=== PATIENT | male | born 1955 | race Caucasian/White ===

== ENCOUNTER → 2017-01-28 | Outpatient (CLI) | payer OTHER ==
[~2017-01-28] MED LIST: ASPI-200 PO; ATEN1TAB74 PO; ATEN50TA PO; LISI-519 PO; NORC5TAB PO; RAMI5CAP7 PO; ROSU20 PO
[2017-01-28 13:02] LABS: AUTOMATED NEUTROPHIL # 5.5 TH/MM3 (1.8-7.7); BASOPHIL % 0.3 % (0.0-2.0); EOSINOPHIL # 0.2 TH/MM3 (0-0.4); EOSINOPHIL % 2.1 % (0.0-4.0); HEMATOCRIT 49.6 % (39.0-51.0); MEAN CORPUSCULAR HEMOGLOBIN 31.8 PG (27.0-34.0); MEAN CORPUSCULAR HGB CONC 34.2 % (32.0-36.0); MEAN PLATELET VOLUME 9.8 FL (7.0-11.0); MONO % 7.4 % (0.0-8.0); MONOCYTE # 0.6 TH/MM3 (0-0.9); NEUT % 66.2 % (16.0-70.0); PLATELET COUNT 204 TH/MM3 (150-450); RED BLOOD COUNT 5.33 MIL/MM3 (4.50-5.90); RED CELL DISTRIBUTION WIDTH 14.5 % (11.6-17.2); WHITE BLOOD COUNT 8.2 TH/MM3 (4.0-11.0)
[2017-01-28 13:25] LABS: ALBUMIN 3.7 GM/DL (3.4-5.0); AST (GOT) 15 U/L (15-37); BICARBONATE 26.6 MEQ/L (21.0-32.0); BLOOD UREA NITROGEN 24 MG/DL (7-18); CALCIUM 9.2 MG/DL (8.5-10.1); CHLORIDE 102 MEQ/L (98-107); CREATININE 0.76 MG/DL (0.60-1.30); GLOMERULAR FILTRATION RATE 104 ML/MIN (>89); GLUCOSE,FASTING 106 MG/DL (74-99); SODIUM (NA) 139 MEQ/L (136-145)
[2017-01-28 13:26] LABS: ALT (GPT) 26 U/L (12-78)
[2017-01-28 13:28] LABS: ALKALINE PHOSPHATASE 42 U/L (45-117); TOTAL BILIRUBIN ADULT 0.6 MG/DL (0.2-1.0); TOTAL PROTEIN 7.2 GM/DL (6.4-8.2)
--- NOTE | 2017-01-28 17:53 | EKG ---
Date Performed: 01/28/2017 Time Performed: 10:52:02 PTAGE: 61 years EKG: Sinus rhythm NORMAL ECG NO PREVIOUS TRACING DOCTOR: Jf Alves Interpretating Date/Time 01/28/2017 17:52:10
--- NOTE | 2017-01-28 17:53 | EKG ---
Date Performed: 01/28/2017 Time Performed: 10:52:02 PTAGE: 61 years EKG: Sinus rhythm NORMAL ECG NO PREVIOUS TRACING DOCTOR: Jf Alves Interpretating Date/Time 01/28/2017 17:52:10
--- NOTE | 2017-01-28 17:53 | EKG ---
Date Performed: 01/28/2017 Time Performed: 10:52:02 PTAGE: 61 years EKG: Sinus rhythm NORMAL ECG NO PREVIOUS TRACING DOCTOR: Jf Alves Interpretating Date/Time 01/28/2017 17:52:10
--- NOTE | 2017-02-01 09:37 | MH ---
cc: JOAQUIN RIDLEY M.D. DATE OF ADMISSION 01/28/2017 DATE OF 1955 ADMISSION DIAGNOSIS 1. Subchondral bone edema / fracture medial femoral condyle and medial tibial plateau left knee. 2. Obesity 3. Osteoarthritis left knee 4. Degenerative/post-traumatic meniscal tears medial meniscus. PAST HISTORY The patient has fought obesity all his life. He has had a lap band procedure done in the past. OTHER SURGERIES As follows: 1. Right total hip 2011 2. Right shoulder replacement many years ago 3. Surgery for strangulated umbilical hernia 4. Tonsillectomy 5. Interventional pain management for chronic back problems. PERSONAL HISTORY He is a nonsmoker. He has a supervisor building maintenance self-employed. MEDICAL PAST HISTORY 1. High blood pressure 2. Hyperlipidemia 3. Coronary artery disease MEDICATIONS 1. Altace 2. Lisinopril PRESENT HISTORY He twisted his knee stepping off a ladder on December 07, 2016 followed by severe pain and inability to walk and limping. The patient was seen in the office and he had x-rays and was given a steroid injection in the knee. The patient came back a week or two later complaining of worsening pain and not getting better at all and inability to do activities of daily living particularly his work and therefore an MRI scan was ordered which showed significant edema medial side of the knee particularly medial femoral condyle and also edema in the anteromedial aspect of the tibial plateau. There is some chondromalacia of the patella and some degenerative meniscus tears. At this point, it was determined that he would be a candidate for this new procedure called subchondroplasty which involves injecting calcium sulfate under fluoroscopic guidance through specialized needles. This procedure shows great promised according to the literature. I discussed this with him particularly telling him that this is a new procedure and this is new to me also, as far as the injection of calcium sulfate is concerned. The rationale and the prognosis and the followup and the potential problems discussed. The patient, when seen today, states about two weeks ago that the pain was mostly gone, but since he has gone back to work after a week's rest, the pain is coming back so he would like to proceed because he is sure that as the time goes and he gets more active on his leg, the pain is going to come back and it appears that it probably will be so. The patient is therefore being brought in for arthroscopic surgery of the knee and percutaneous injection of calcium sulfate as mentioned above. Informed consent has been obtained. No guarantees made. Postoperative course including use of crutches and the fact that he is going to be swollen and sore for about three weeks discussed with that. PHYSICAL EXAM Physical examination reveals a white male who is 5 foot 10 inches tall, 265 pounds. He has a varus deformity of the right knee and middle varus deformity of the left knee. There is some swelling of the left knee, but no warmth or effusion. He is tender over the medial femoral condyle and medial joint line, but not over the medial tibial plateau. He has discomfort in the popliteal space also. He lacks the last couple of degrees of extension, but can flex past 90 degrees. No instability. Left foot has palpable pedal pulses. He moves his toes well. HEAD: Head is normocephalic. EYES, EARS, NOSE AND THROAT: Pupils react to light. Face symmetrical. HEART: Regular rhythm. No murmurs. Lungs Clear to auscultation. ABDOMEN: Nontender. PREOPERATIVE WORK UP Revealed normal essentially borderline change in the blood tests. His EKG is reported as normal. MD AUGUSTUS Monroe/BRITTNEY /9:10 AM 9:19 AM JORDY
== END ==
LOC: CPRE 10:15
PROVIDERS: ATTEND Orthopaedic Surgery
DX: Z01.810 Encounter for preprocedural cardiovascular examination (principal); Z01.812 Encounter for preprocedural laboratory examination
CPT/HCPCS: 36415; 80053; 85025; 93005

== ENCOUNTER → 2017-02-01 | Day surgery (SDC) | payer OTHER ==
[~2017-02-01] VITALS: Ht 177.8 cm; Wt 126.5 kg
[~2017-02-01] MED LIST changes: +*morphine SULFATE 8 MG/ML PERIprocedure ONLY ONE; +ACETAMINOPHEN/HYDROcodone 325 MG/5 MG TAB PO PRN; -ATEN1TAB74 PO; +BUPIVACAINE HCL PF 0.5% 30 ML VIAL ONE; +CHLORHEXIDINE GLUCONATE 2 % 1 PACK (2 CLOTHS) TOPICAL PRN; +DO NOT ADM ANY ANTICOAGULANT DRUGS PRN; +INSULIN HUMAN REGULAR 1,000 UNITS/10 ML VIAL SQ PRN; +LACTATED RINGER'S 1000 ML IV PRN; +LIDOCAINE HCL 1% PF 5 ML AMPULE OTHER ONE; +METOPROLOL TARTRATE 25 MG TAB PO PRN; +MIDAZOLAM HCL 2 MG/2 ML VIAL IV ONE; +MORPHINE SULFATE 4 MG/ML INJ IV PUSH PRN; +ONDANSETRON HCL 4 MG/2 ML VIAL IV ONE; +ONDANSETRON HCL 4 MG/2 ML VIAL IV PUSH PRN; +PHENYLEPH/NS 1000 MCG/10 ML SYR IV ONE; +POVIDONE IODINE 5% (ANTISEPSIS KIT) 4 APPLICATIONS EACH NARE PRN; +POVIDONE IODINE 7.5% SCRUB 118 ML BOTTLE TOPICAL SCH; +PROPOFOL 200 MG/20 ML AMP IV ONE; -RAMI5CAP7 PO; -ROSU20 PO; +SODIUM CHLORID 0.9% 500 ML IV PRN; +SODIUM CHLORIDE 0.9% FLUSH 5 ML FLUSH IVF PRN; +SODIUM CHLORIDE 0.9% FLUSH 5 ML FLUSH IVF SCH; +ceFAZolin 2 GM PREMIX 50 ML IV SCH; +ePHEDrine/NS 25 MG/5 ML SYR IV ONE
--- NOTE | 2017-02-01 13:48 | RADRPT ---
EXAM DATE/TIME: 02/01/2017 12:24 [facility] COMPARISON: No previous studies available for comparison. INDICATIONS : Left knee arthroscopy and sub-chondroplasty. MEDICAL HISTORY : Hypertension. SURGICAL HISTORY : Coronary artery stent. ENCOUNTER: Initial ACUITY: 1 day PAIN SCORE: Non-responsive. LOCATION: Left knee. FINDINGS: 7 magnified C-arm spot views are centered over the knee joint and labeled left. Images show placement of trochars into the medial femoral condyle as well as the medial tibial plateau. Both paralleling t he articular surface subsequent images show methylmethacrylate cement within the trabecular bone at t hese locations. No cement is observed within the joint space. CONCLUSION: Sub-chondroplasty images as detailed above. Eugene Coyne Jr., MD on February 01, 2017 at 13:40 Board Certified Radiologist. This report was verified electronically.
[2017-02-01 15:05] VITALS: BP 120/89; PULSE 67; RESP 18; TEMP 97; O2SAT 97
--- NOTE | 2017-02-01 20:57 | MP ---
cc: JOAQUIN MENDES DATE OF SURGERY: 02/01/2017. PREOPERATIVE DIAGNOSIS: 1. Subchondral bone edema / fracture medial femoral condyle and medial tibial plateau. 2. Osteoarthritis. 3. Obesity. 4. Degenerative tear medial meniscus. POSTOPERATIVE DIAGNOSIS: 1. Subchondral bone edema / fracture medial femoral condyle and medial tibial plateau. 2. Osteoarthritis. 3. Obesity. 4. We did not see any obvious tearing of the medial meniscus. OPERATIVE PROCEDURE PERFORMED: Arthroscopic surgery consisting of: 1. Chondroplasty medial femoral condyle. 2. Partial synovectomy including the excision of a medial plica. Subchondral plasty of the medial femoral condyle and medial tibial plateau. SURGEON: Joaquin Mendes MD. ANESTHESIA: General. DESCRIPTION OF THE PROCEDURE IN DETAIL: After induction of general anesthesia, the patient's right leg was examined. There was no change from the preoperative evaluation. A midthigh tourniquet was applied. The patient's leg was placed in a leg chaney with good padding. The right leg was placed on a folded foam and the genital area well protected. The left lower extremity was thoroughly prepped with alcohol and ChloraPrep and draped in routine fashion. After application of an Esmarch bandage, the tourniquet was inflated to 275 mmHg. The arthroscope was introduced into the knee through the inferolateral portal adjacent to the lower pole of the patella and patellar tendon. Irrigation established superomedially. Accessory medial portal established for instrumentation. Systematic visualization of the joint was carried out. The patient's suprapatellar pouch had a lot of debris that was evacuated. It should be noted that when we put the cannula to put the scope in, about 10 cc of serous fluid came out of the joint. The patellofemoral joint showed osteoarthritis with a bare area of undersurface of the patella with bone exposed over an area of about 10 mm. There was chondromalacia of the rest of the cartilage and so it was over the trochlear notch of the femur. There was significant synovitis anteromedially including a very thick medial patellar plica which was eventually debrided. The medial meniscus was somewhat atrophic with no obvious tearing. The posterior horn seemed stable. The anterior cruciate ligament was normal. The lateral compartment showed much improved appearance of the cartilage and meniscus with no obvious changes. Using a 16 degree ArthroCare wand, chondroplasty of the medial femoral condyle was carried out. As mentioned before, a synovectomy including excision of medial plica was carried out. The arthroscopic instrumentation was withdrawn and fluoroscopic imaging was carried out to locate the site of introduction of the 11 mm needle cannula of the AccuFill System into the center of the bone edema of the medial femoral condyle and the medial tibial plateau. I had AP and lateral fluoroscopic images available to be able to do this. I used a multi-hole cannula in the medial femoral condyle and an end hole needle cannula on the tibia. Once we confirmed position of these needle cannulas fluoroscopically, the calcium sulfate that was mixed on the back table was injected, first into the femur and then into the tibia and 3 cc were injected into the femur and 2 cc into the tibia. Fluoroscopic imaging revealed satisfactory distribution of this with no extravasation into the soft tissues or the joint. With the needles still there, and with the attached syringes, arthroscopic evaluation was resumed. We particularly looked in the medial gutter and adjacent to the medial tibial plateau and there was no evidence of extravasation either here or on the joint surface. Arthroscopic surgery was completed. The portals were closed with nylon sutures. The needle cannulae of the AccuFill System was left in for 12 minutes (recommended time 10 minutes for solidification of the calcium sulfate), and this was then withdrawn and the areas were dressed with Xeroform, 4 x 4's, ABD, Sof-Rol and AUGUSTINE bandage. Final fluoroscopic images revealed good appearance of the calcium sulfate / AccuFill bone graft in the medial femoral condyle and medial tibial plateau. Final fluoroscopic images were saved for record keeping. The patient was transferred to the recovery room in satisfactory condition after release of the tourniquet. Total tourniquet time was 55 minutes. The patient tolerated the procedure well. Complications - none. The postoperative condition was satisfactory. The prognosis is guarded to good. MD AUGUSTUS Monroe/NESHA /1:24 PM /8:24 PM JORDY
== END | disposition home or self-care (01) ==
LOC: HSDC 09:55
PROVIDERS: ATTEND Orthopaedic Surgery
DX: S72.432A Displaced fracture of medial condyle of left femur, initial encounter for closed fracture (principal); S82.142A Displaced bicondylar fracture of left tibia, initial encounter for closed fracture; M94.262 Chondromalacia, left knee; M17.12 Unilateral primary osteoarthritis, left knee; I10 Essential (primary) hypertension; E66.9 Obesity, unspecified; Z95.5 Presence of coronary angioplasty implant and graft
CPT/HCPCS: 01400; 29855; 29875; 73560; 76000; C1713; J0690; J2250; J2270; J2370; J2405; J3010; J7120

== ENCOUNTER 2017-03-03 19:19 | Emergency (ER) | payer OTHER ==
[~2017-03-03] VITALS: Ht 177.8 cm; Wt 124.0 kg
[~2017-03-03 19:19] MED LIST changes: -*morphine SULFATE 8 MG/ML PERIprocedure ONLY ONE; -ACETAMINOPHEN/HYDROcodone 325 MG/5 MG TAB PO PRN; -BUPIVACAINE HCL PF 0.5% 30 ML VIAL ONE; -CHLORHEXIDINE GLUCONATE 2 % 1 PACK (2 CLOTHS) TOPICAL PRN; -DO NOT ADM ANY ANTICOAGULANT DRUGS PRN; -INSULIN HUMAN REGULAR 1,000 UNITS/10 ML VIAL SQ PRN; -LACTATED RINGER'S 1000 ML IV PRN; -LIDOCAINE HCL 1% PF 5 ML AMPULE OTHER ONE; -METOPROLOL TARTRATE 25 MG TAB PO PRN; -MIDAZOLAM HCL 2 MG/2 ML VIAL IV ONE; -MORPHINE SULFATE 4 MG/ML INJ IV PUSH PRN; -ONDANSETRON HCL 4 MG/2 ML VIAL IV ONE; -ONDANSETRON HCL 4 MG/2 ML VIAL IV PUSH PRN; -PHENYLEPH/NS 1000 MCG/10 ML SYR IV ONE; -POVIDONE IODINE 5% (ANTISEPSIS KIT) 4 APPLICATIONS EACH NARE PRN; -POVIDONE IODINE 7.5% SCRUB 118 ML BOTTLE TOPICAL SCH; -PROPOFOL 200 MG/20 ML AMP IV ONE; -SODIUM CHLORID 0.9% 500 ML IV PRN; -SODIUM CHLORIDE 0.9% FLUSH 5 ML FLUSH IVF PRN; -SODIUM CHLORIDE 0.9% FLUSH 5 ML FLUSH IVF SCH; -ceFAZolin 2 GM PREMIX 50 ML IV SCH; -ePHEDrine/NS 25 MG/5 ML SYR IV ONE
[2017-03-03 19:29] VITALS: BP 135/77; PULSE 82; RESP 18; TEMP 98.3
--- NOTE | 2017-03-03 20:29 | PD ---
HPI Chief Complaint: Skin Problem Time Seen by Provider: 20:10 Travel History International Travel<30 days: No Contact w/Intl Traveler<30days: No Traveled to known affect area: No History of Present Illness HPI 61-year-old male with history of MRSA presents to the emergency room for evaluation of left hand infection. First noticed it 4 days ago days ago. States it started as a superficial blister 1 week ago that he got from a jackhammer. He pulled off the skin and the following day, he had increasing redness, pain, and swelling. Denies fever, chills, nausea, and vomiting. Only reports history of HTN. Tetanus is up-to-date. PFSH Past Medical History Arthritis: Yes Autoimmune Disease: No Blood Disorders: No Heart Rhythm Problems: No Cancer: No Cardiovascular Problems: Yes (STENT X1) High Cholesterol: Yes Chemotherapy: No Chest Pain: No Congestive Heart Failure: No Cerebrovascular Accident: No Diabetes: No Diminished Hearing: No Endocrine: No Glaucoma: No Genitourinary: No Headaches: No Hepatitis: No Hiatal Hernia: No Hypertension: Yes Immune Disorder: No Musculoskeletal: Yes (OA) Neurologic: No Psychiatric: No Reproductive: No Respiratory: No Myocardial Infarction: No Radiation Therapy: No Seizures: No Thyroid Disease: No ?: Not Past Surgical History AICD: No Body Medical Devices: LAP BAND Cardiac Surgery: No Coronary Stent: Yes Ear Surgery: No Endocrine Surgery: No Eye Surgery: No Genitourinary Surgery: No Gynecologic Surgery: No Joint Replacement: Yes (L HIP, L SHOULDER) Oral Surgery: No Pacemaker: No Thoracic Surgery: No Other Surgery: Yes Social History Alcohol Use: No Tobacco Use: No Substance Use: No Allergies-Medications (Allergen,Severity, Reaction): Coded Allergies: No Known Allergies (Verified Allergy, Unknown, 03/03/17) Reported Meds & Prescriptions Reported Meds & Active Scripts Active Clindamycin (Clindamycin HCl) 300 Mg Cap 300 Mg PO Q6H 10 Days Bactrim DS (Sulfamethoxazole-Trimethoprim) 800-160 Mg Tab 1 Tab PO BID Reported Atenolol 50 Mg Tab 50 Mg PO DAILY Lisinopril 5 Mg Tab 5 Mg PO DAILY Review of Systems Except as stated in HPI: all other systems reviewed are Neg Physical Exam Narrative GENERAL: Well-nourished, well-developed male in no acute distress. Afebrile. Ambulatory. SKIN: Focused skin assessment warm/dry.SKIN: There is an indurated area in the left thenar eminence which measures about 2 cm in diameter. It is fluctuant but there is no pointing or drainage. There is a zone of inflammation around it with lymphangitis extending to the wrist HEAD: Normocephalic. EYES: No scleral icterus. No injection or drainage. NECK: Supple, trachea midline. No JVD or lymphadenopathy. CARDIOVASCULAR: Regular rate and rhythm without murmurs, gallops, or rubs. RESPIRATORY: Breath sounds equal bilaterally. No accessory muscle use. MUSCULOSKELETAL: No cyanosis. Mild to moderate edema of the left hand. Full range of motion. Less than 2 second capillary refill distally. Data Data Last Documented VS Vital Signs Date Time Temp Pulse Resp B/P (MAP) Pulse Ox O2 Delivery O2 Flow Rate FiO2 03/03/17 19:29 98.3 82 18 135/77 (96) Orders Orders Lidocai-Epi 1%-1:100,000 Inj (Xylocaine- (03/03/17 20:30) Clindamycin Inj (Cleocin Inj) (03/03/17 20:30) Ed Discharge Order (03/03/17 20:47) [facility] Medical Decision Making Medical Screen Exam Complete: Yes Emergency Medical Condition: Yes Medical Record Reviewed: Yes Differential Diagnosis Abscess, cellulitis, folliculitis Narrative Course 61-year-old male with history of MRSA presents to the emergency room for evaluation of an abscess to his left hand. Started off as a superficial blister caused by a jackhammer that he picked. Denies systemic signs of infection. Vital signs stable. Patient has full range of motion of the left hand. There is moderate edema of the left hand but full range of motion. There is an abscess over the thenar eminence that is extremely tender to palpation. Lymphangitis extending to the left wrist. Patient given 900 mg IM clindamycin the emergency room. Abscess was drained, see procedure for details. Patient discharged with prescription for clindamycin and Bactrim and told to follow-up with a PCP or return for worsening symptoms. He understands and agrees to plan. Procedures Procedure Narrative INCISION AND DRAINAGE OF ABSCESS: The area was prepped and was sterilely draped. A subcutaneous wheal of 1% lidocaine with epinephrine with a total number 3 mL was used to anesthetize the area properly. A number 11 scalpel was used to make a 1 cm incision across the area of the abscess. The abscess was drained, complex loculations were broken down, and irrigated with normal saline. Sterile dressing applied. Diagnosis Primary Impression: Abscess of left hand Referrals: Primary Care Physician Additional Instructions: Rest and drink plenty of fluids. Take Bactrim as directed, until gone. Take clindamycin as directed, until gone. Follow up with a primary care physician. Return to emergency room for worsening symptoms, as discussed. Med/Other Pt SpecificInfo: Prescription(s) given Scripts Clindamycin (Clindamycin) 300 Mg Cap 300 MG PO Q6H for Infection for 10 Days, #40 CAP 0 Refills Prov: Raymundo Odonnell MD 03/03/17 Sulfamethoxazole-Trimethoprim (Bactrim DS) 800-160 Mg Tab 1 TAB PO BID for Infection, #20 TAB 0 Refills Prov: Raymundo Odonnell MD 03/03/17 Disposition: 01 DISCHARGE HOME Condition: Stable Bindu Gibson Mar 03, 2017 20:29
[2017-03-03] MEDS ORDERED: LIDOCAINE 1%/EPINEPHrine 1:100,000 SOLN 20 ML VIAL INFIL ONE (20:30)
[2017-03-03] MEDS ORDERED: CLINDAMYCIN PHOS 900 MG/6 ML VIAL IM ONE (20:30)
[2017-03-03] MEDS ORDERED: CLIN300C5 PO (20:46)
[2017-03-03] MEDS ORDERED: BACT800T5 PO (20:46)
== END 2017-03-03 21:06 | disposition home or self-care (01) ==
LOC: PHEFT 19:19
DX: L02.512 Cutaneous abscess of left hand (principal); Z86.14 Personal history of Methicillin resistant Staphylococcus aureus infection
CPT/HCPCS: 10060; 96372

== ENCOUNTER 2017-10-01 06:42 | Day surgery (SDC) | payer OTHER ==
[~2017-10-01] VITALS: Ht 177.8 cm; Wt 124.2 kg
[~2017-10-01 06:42] MED LIST changes: -ASPI-200 PO; +BACT800T5 PO; +CLIN300C5 PO; -NORC5TAB PO
[2017-10-01] MEDS ORDERED: IOHEXOL 350 MG/ML 100 ML BTL (for Cath Lab) OTHER ONE (06:43)
[2017-10-01 07:20] VITALS: BP 124/80; PULSE 62; RESP 18; TEMP 98.7; O2SAT 96
[2017-10-01] MEDS ORDERED: ASPI-183 PO (07:29)
[2017-10-01] MEDS ORDERED: ATOR40TA16 PO (07:29)
[2017-10-01] MEDS ORDERED: NS 1000P @30 MLS/HR (KVO) IV SCH (07:30)
[2017-10-01] MEDS ORDERED: PRAV20TA2 PO (07:33)
[2017-10-01] MEDS ORDERED: HEPARIN-NS/PF INJ 1,500 ML ONE (07:49)
[2017-10-01] MEDS ORDERED: HEPARIN SODIUM - IV 10,000 UNITS/10 ML VIAL ONE (07:49)
[2017-10-01] MEDS ORDERED: NITROGLYCERIN INJ 5 ML ONE (07:50)
[2017-10-01] MEDS ORDERED: MIDAZOLAM HCL 2 MG/2 ML VIAL ONE (08:19)
[2017-10-01] MEDS ORDERED: LIDOCAINE HCL 1% PF 30 ML VIAL ONE (08:22)
[2017-10-01] MEDS ORDERED: ATROPINE SULFATE 1 MG/ML VIAL IV PUSH PRN (09:15)
[2017-10-01] MEDS ORDERED: LORazepam 2 MG/ML VIAL IV PUSH PRN (09:15)
[2017-10-01] MEDS ORDERED: SODIUM CHLOR 0.9% 250 ML INJ 250 ML IV PRN (09:15)
[2017-10-01] MEDS ORDERED: MISC INFORMATION XX ONE ×2 (09:15)
[2017-10-01] MEDS ORDERED: LIDOCAINE HCL 1% 50 ML VIAL INFIL PRN (09:15)
[2017-10-01] MEDS ORDERED: BACITRACIN OINT 0.9 GM PKT TOP ONE ×2 (09:15)
--- NOTE | 2017-10-01 09:18 | CATHPROC ---
Esan[employer] HIS Report Study Information Study Number Admission Scheduled Start Study Start [id number] Oct 01 2017 6:42AM 10/01/2017 Oct 01 2017 8:13AM [place] [facility] Cardiac Catheterization Admit Source Facility Department Other [facility] Physician and Clinical Staff Initial [facility] Garrett RN, Benito RecordMonet Corcoran,FRANCIS TECH2 Scrub Stone, Lyssa,RT(R) Procedures Performed Procedure Location (Site) Vessel Name Angiogram LV LV Ventricle Coronary Angiograms LCA Left Coronary Coronary Angiograms RCA Right Coronary Wire insertion Radial (right) Radial Art. Equipment Time Electric Spot Welder Description Size Mfg Part Number Used/Scraped TRANSDUCER, TRUWAVE [id number] 08:15 WOODY GUERRERO * Used W/STOCKCOCK *[id number] 09:05 [employer] VASCADE, FR5 CLOSURE SYSTEM FR 5 Used *[id number] [id number] *[id number] [id number] *[id number] [id number] *[id number] WIRE, AMPLATZ SUPER STIFF 08:43 Esanex 180CM [id number] Used 3MMJ [id number] 08:15 TRiQ BLANKET,WARM AIR CCL * Used *[id number] 08:15 TRiQ PACK, CCL CUSTOM * Used *[id number] 08:15 TRiQ SUPPORT, ARTERIAL ADULT 11772 *[id number] Used [id number] 08:15 Dine perfect PACER PEN, SKIN DUAL W/ RULER * Used *[id number] 08:52 [employer] JL 4.0 DXTERITY CATHETER FR 5 Used *[id number] BAND, RADIAL COMPRESSION TR [id number] 09:04 [employer] 24CM Used SHORT 24 *[id number] SHEATH, FR6 RADIAL PRELUDE 08:15 [employer] FR 6 [id number] Used EASE 11CM [id number] 08:15 [employer] WIRE, EXCHANGE 260CM 3MMJ 260CM Used *[id number] 08:15 NAMIC MANIFOLD, 4 PORT * Used *[id number] TUBING, PRESSURE INJECTION [id number] 09:04 NAMIC 72" Used 72" *[id number] 08:15 [employer] OMNIPAQUE, 350 MG, 150ML 150ML [id number] Used 09:02 [employer] OMNIPAQUE, 350 MG, 50ML 50ML [id number] Used [id number] 08:49 TERUMO MEDICAL SHEATH, FR5 TERUMO (10CM) FR 5 Used *[id number] Equipment Model, Serial, Lot Number and Expiration Data Description Model Number Serial Number Lot Number Expiration Date JL 4.0 DXTERITY CATHETER [id number] 01-23-2020 WIRE, AMPLATZ SUPER STIFF 3MMJ [id number] 07-01-2020 History: Current Medications Medication Dosage/Unit Route Frequency Last Date/Time Taken ASA Beta Abdulaziz LISINOPRIL HCTZ History: Allergies Allergy Reaction No Known Allergies History: Risk Factors Family History of Hypertension Dyslipidemia Previous NH Previous Heart Failure Premature CAD Yes Yes No No No Prior Valve Prior PCI Prior PCIDate Prior CABG Surgery No Yes 12/14/2004 No Cerebrovascular Peripheral Artery Chronic Lung On Dialysis Diabetes Disease Disease Disease No No No No No History: Symptoms/Diagnosis Selection Items Chest pain History: Stress Tests Stress or Imaging Studies Performed Yes Standard Exercise Stress Test No Stress Echo No Stress Test SPECT Stress Test SPECT Result Stress Test SPECT Ischemia Risk/Extent Yes Positive Intermediate Stress Test CMR No Cardiac CTA Coronary Calcium Score No No History: Other Current Smoker No Labs Hgb (g/dl) Hct (%) Platelets (thousands) 11.60-17.00 35.00-51.00 150.00-450.00 16.4 50.8 227 Glucose (mg/dl) BUN (mg/dl) Creatinine (mg/dl) BUN:Creatinine (1:x) 74.00-106.00 7.00-18.00 0.50-1.30 10.00-20.00 107 20 0.8 25 Na (meq/l) K (meq/l) 136.00-145.00 3.50-5.10 141 4.6 INR (PTT:PT) 0.90-1.10 1 CPK-MB (ng/ML) 0.50-3.60 Not Drawn Medication Medication Total Dose (Bolus/Oral) Medication Total Dosage/Unit 1% XYLOCAINE 25 mL FENTANYL 75 mcg HEPARIN 5000 units NTG (IC) 200 mcg VERSED 2 mg Medications (Bolus/Oral) Medication Time Given Dosage/Unit Administered By Reason VERSED 10/01/2017 8:34:30 AM 1 mg Benito Tucker RN 1 mg VERSED given in lab by Benito Tucker RN in Left Antecubital via Peripheral IV. Ordered by Michel Ott. FENTANYL 10/01/2017 8:35:43 AM 50 mcg Benito Tucker RN 50 mcg FENTANYL given in lab by Benito Tucker RN in Left Antecubital via Peripheral IV. Ordered by Michel Rahman. 1% XYLOCAINE 10/01/2017 8:37:14 AM 5 mL Michel Ott 5 mL 1% XYLOCAINE given in lab by Michel Ott in Right Radial via Subcutaneous. Ordered by Michel Ott. NTG (IC) 10/01/2017 8:38:46 AM 200 mcg Michel Ott 200 mcg NTG (IC) given in lab by Michel Ott in Right Radial via Intra-arterial. Ordered by Michel Ott. HEPARIN 10/01/2017 8:39:40 AM 5000 units Benito Tucker RN 5000 units HEPARIN given in lab by Benito Tucker RN in Left Antecubital via Peripheral IV. Ordered by Michel Ott. 1% XYLOCAINE 10/01/2017 8:47:21 AM 20 mL Michel Ott 20 mL 1% XYLOCAINE given in lab by Michel Ott in Right Groin via Subcutaneous. Ordered by Michel Ott. VERSED 10/01/2017 8:47:53 AM 1 mg Benito Tucker RN 1 mg VERSED given in lab by Benito Tucker RN in Left Antecubital via Peripheral IV. Ordered by Michel Ott. FENTANYL 10/01/2017 8:48:57 AM 25 mcg Benito Tucker RN 25 mcg FENTANYL given in lab by Benito Tucker RN in Left Antecubital via Peripheral IV. Ordered by Michel Rahman. Medication (Drip) Medication Time Given Dosage/Unit Concentration/Unit Diluent (ml) Solution IV Solutions 10/01/2017 8:13:24 AM 0 mL (IV) 500 NaCl .9 IV Solutions given in lab by Benito Tucker RN in Left Antecubital via Peripheral IV. Pump/Drip Flow = 30 ml/hr using NaCl .9. Initial Case Assessment Cardiovascular HR Rhythm NIBP Chest Pain 57 reg 132/84 0 Edema Present Skin color Skin None Normal Warm Dry Circulatory - Right Pulses Dorsalis Pedis Femoral Radial 2 3 2 Scale (0,1,2,3,4,d) Circulatory - Left Pulses Dorsalis Pedis Femoral Radial 2 3 Scale (0,1,2,3,4,d) Circulatory - Lower Extremities Color Lower Right Color Lower Left Normal Normal Neurological State Oriented to time-place- Alert Moves all extremities person Respiration - General Respiration Rate SpO2 (%) (B/min) 10 97 Final Case Assessment Cardiovascular HR Rhythm NIBP Chest Pain 59 sr 131/90 0 Circulatory - Right Pulses Dorsalis Pedis Femoral Radial 2 3 2 Scale (0,1,2,3,4,d) Circulatory - Left Pulses Dorsalis Pedis Femoral Radial 2 3 Scale (0,1,2,3,4,d) Neurological State Oriented to time-place- Alert Moves all extremities person Respiration - General Respiration Rate SpO2 (%) (B/min) 20 97 Chronological Log Time Study Chronological Log 8:13:03 Patient arrived via Bed. 8:13:04 Patient Name, D.O.B, / Armband Verified By R.N. 8:13:04 Consent signed by the physician and the patient and verified by the [facility] staff. 8:13:05 Pre-op and post- op instructions given; patient acknowledges understanding of instructions. 8:13:06 Verbal Stimulation=2 Physical Stimulation=2 Airway=2 Respiration=2 TOTAL=8. (0=absent, 1=li mited, 2=present) 8:13:07 Presedation assessment performed by [facility] RN. 8:13:12 Allens test performed on the right radial and ulnar artery. 8:13:17 Patient has been NPO for More than 6Hrs. 8:13:18 Skin Breakdown none per pt 8:13:19 Patient Warmer Placed on the Table. 8:13:22 Piedad Prominences Protected 8:13:23 A # 20 IV was noted in the Antecubital (left). Grade = 0 IV Solutions given in lab by Benito Tucker RN in Left Antecubital via Peripheral IV. Pump/Drip F low = 30 ml/hr using NaCl 8:13:24 .9. 8:13:25 History and physical on the chart or being dictated. Assessment: Initial Case, HR=57 BPM, Rhythm=reg, FEVJ=875/84 mmhg, Chest Pain=0, Edema=None, Co deion=Normal, Skin = Warm, Dry Right Pulses: Koffi Ped=2, Femoral=3, Radial=2 Left Pulses: Koffi Ped=2, Femoral=3 8:13:26 Lower Right Extremities: Color=Normal Lower Left Extremities: Color=Normal Neurological: State=Alert, Ox3, GIL Respiration: Resp=10 B/min, SpO2=97 % Vitals capture started with the following parameters, Patient=Adult, Interval=5 min, Initial Pre xyrad=485 mmHg, 8:14:43 Deflation Rate=5 mmHg, Cuff placed on Left Arm 8:15:51 PUKH=226/84 mmhg, SpO2=97.0 %, Pain=0, Salvador=10, Biswas=2 8:18:25 Reference ECG taken 8:20:21 HR=56 bpm, JRDW=817/81 mmhg, SpO2=96.0 %, Resp=11 B/min, Pain=0, Salvador=10, Biswas=2 8:22:14 Right groin and right radial prepped with 2% chlorhexidine, and draped after a 3 min. waitin g time. 8:25:20 HR=56 bpm, WWYG=187/80 mmhg, SpO2=95 %, Resp=18 B/min 8:28:19 Pressure channel 1 zeroed. 8:30:23 HR=57 bpm, UZJN=096/81 mmhg, SpO2=96.0 %, Resp=12 B/min 8:33:19 MD arrived. 8:34:30 1 mg VERSED given in lab by Benito Tucker RN in Left Antecubital via Peripheral IV. Ordered Michel Whitley. 8:35:22 HR=54 bpm, MLHB=722/81 mmhg, SpO2=96.0 %, Resp=11 B/min 8:35:43 50 mcg FENTANYL given in lab by Benito Tucker RN in Left Antecubital via Peripheral IV. Order ed by Michel Ott. Time Out. Correct patient, correct procedure, correct physician, labs, allergies, and equipment verified with laborer tanbark 8:36:05 team present. Fire risk assesment completed (see hard stop sheet for coding). Time Out Concu rred by and individual staff in procedure. 8:37:13 Case Start 8:37:14 5 mL 1% XYLOCAINE given in lab by Michel Ott in Right Radial via Subcutaneous. Ordered Michel Whitley. 8:38:15 Access site was Radial Artery. A SHEATH, FR6 RADIAL PRELUDE EASE 11CM FR 6 was advanced into the Radial (right) using the Aide hernandez 8:38:31 technique. 8:38:46 200 mcg NTG (IC) given in lab by Michel Ott in Right Radial via Intra-arterial. Ordered by Michel Ott. A JR 5.0 INFINITI CATHETER FR 5 was advanced over a wire. OMNIPAQUE, 350 MG, 150ML 150ML was use d for 8:39:28 injections. 8:39:40 5000 units HEPARIN given in lab by Benito Tucker RN in Left Antecubital via Peripheral IV. Or dered by Michel Ott. 8:40:23 HR=60 bpm, JNON=995/74 mmhg, SpO2=94 %, Resp=11 B/min Recorded Pressure: Ao, HR=54, Condition=Condition 1 8:41:38 (Aorta) Ao 91/60/74 8:42:53 A WIRE, AMPLATZ SUPER STIFF 3MMJ 180CM was inserted via Radial (right). 8:44:14 Wire and catheter removed, unable to advance catheter. 8:44:57 Aborting radial aproach. 8:45:20 HR=55 bpm, UJTA=634/68 mmhg, Resp=16 B/min 8:47:21 20 mL 1% XYLOCAINE given in lab by Michel Ott in Right Groin via Subcutaneous. Ordered Michel Whitley. 8:47:53 1 mg VERSED given in lab by Benito Tucker RN in Left Antecubital via Peripheral IV. Ordered Michel Whitley. 8:48:29 Access site was Right Femoral Artery. 8:48:34 A SHEATH, FR5 TERUMO (10CM) FR 5 was advanced into the Fem Art (right) using the Percutaneou s technique. 8:48:57 25 mcg FENTANYL given in lab by Benito Tucker RN in Left Antecubital via Peripheral IV. Order ed by Michel Ott. A JR 5.0 INFINITI CATHETER FR 5 was advanced over a wire. OMNIPAQUE, 350 MG, 150ML 150ML was use d for 8:49:58 injections. 8:50:10 The RCA was injected and visualized at various angles. OMNIPAQUE, 350 MG, 150ML 150ML used. 8:50:19 HR=56 bpm, YMYF=724/74 mmhg, SpO2=90 %, Resp=12 B/min After removing the current catheter a JL 4.0 DXTERITY CATHETER FR 5 was advanced over a WIRE, EX CHANGE 260CM 8:51:55 3MMJ 260CM. Unable to cannulate LCA, After removing the current catheter a JL 5.0 INFINITI CATHETER FR 5 was advanced over a 8:53:17 WIRE, EXCHANGE 260CM 3MMJ 260CM. Unable to cannulate LCA 8:55:23 HR=58 bpm, TYZR=665/75 mmhg, SpO2=95 %, Resp=10 B/min 8:55:54 The LCA was injected and visualized at various angles. OMNIPAQUE, 350 MG, 150ML 150ML use d. After removing the current catheter a PIGTAIL ANG. INFINITI CATHETER FR 5 was advanced over a WIRE, EXCHANGE 8:59:15 260CM 3MMJ 260CM. 9:00:24 HR=91 bpm, ANIP=546/69 mmhg, SpO2=95.0 %, Resp=15 B/min Recorded Pressure: LV, HR=58, Condition=Condition 1 9:01:12 (Left Ventricle) LV 112/5/12 9:02:08 The LV was injected at 10 cc/sec for a total of 30. OMNIPAQUE, 350 MG, 50ML 50ML used. Recorded Pressure: LV, Ao, HR=57, Condition=Condition 1 9:02:43 (Left Ventricle) LV 101/9/11, (Aorta) Ao 99/58/76 9:03:08 Catheter was removed 9:03:37 Case End (Physician broke scrub) 9:05:23 HR=61 bpm, AJHF=341/78 mmhg, SpO2=97 %, Resp=18 B/min Radial Compression Device Used. 10 mLs of air placed in BAND, RADIAL COMPRESSION TR SHORT 24 2 4CM. Affected 9:06:49 hand ~O2 SATURATION~ % O2 saturation. 9:10:11 VASCADE, FR5 CLOSURE SYSTEM FR 5 placement in the Fem Art (right) manual pressure held for 5 min. 9:10:22 HR=60 bpm, SNMH=440/90 mmhg, SpO2=98.0 %, Resp=18 B/min Assessment: Final Case, HR=59 BPM, Rhythm=sr, ZVNR=152/90 mmhg, Chest Pain=0 Right Pulses: Koffi Ped=2, Femoral=3, Radial=2 9:11:32 Left Pulses: Koffi Ped=2, Femoral=3 Neurological: State=Alert, Ox3, GIL Respiration: Resp=20 B/min, SpO2=97 % 9:13:53 Cine recording checked. 9:15:10 Sterile dressing applied to site 9:15:25 HR=61 bpm, YARQ=514/86 mmhg, SpO2=95.0 %, Resp=18 B/min 9:15:52 No case complications noted. 9:16:54 Bedside Report will be given. End Study - Contrast Media Used In Study Contrast Total Opened (mL) Total Used (mL) Total Wasted (mL) Omnipaque 70 70 0 End Study - Maximum Contrast Load Max Contrast Load (mL) 776.1 End Study - Radiation Exposure Fluoro Time (minutes) 3.1 End Study - Sheaths Sheaths Pulled By Sheath Hold Time (min) Lyssa Hooks End Study - Patient Disposition Complications Transferred To Interventional Outcome No Outpatient Bed No attempt made
--- NOTE | 2017-10-01 09:42 | MA ---
cc: Michel Ott MD DATE: 10/01/2017 INDICATION: Unstable angina, intermediate risk abnormal stress test. PROCEDURES PERFORMED: 1. Fluoroscopy with interpretation. 2. Coronary angiography. 3. Left heart catheterization 4. Left ventriculography. METHOD: Risks, benefits and alternatives were discussed with the patient. The patient understood and consented to the procedure. The patient was brought into the catheterization lab, placed on the catheterization table. The right wrist and right groin were prepped and draped in the usual sterile fashion. The right wrist was anesthetized with 2% lidocaine. The right radial artery was cannulated. A 6-Andorran, 7 cm sheath was placed without difficulty. We did have difficulty navigating the tortuous subclavian and brachiocephalic arteries. We were able to get to the ascending aorta, but due to the tortuosity made coronary engagement very difficult. Radial approach was aborted. A 5-Andorran, 11 cm sheath was placed in the right common femoral artery. LEFT HEART CATHETERIZATION: Intraventricular hemodynamics measured at 101/9 mmHg. Left ventricular end-diastolic pressure 11 mmHg. LEFT VENTRICULOGRAPHY: Left ventriculography was performed in right anterior oblique view using a 5-Andorran angled pigtail catheter and a 30 mL contrast injection with good opacification. Left ventricular ejection fraction visually estimated at 60% without regional wall motion abnormalities. CORONARY ANGIOGRAPHY; 1. Left main coronary has 30% ostial stenosis. There was no dampening upon engagement. 2. Left anterior descending coronary has a stent present in the proximal to mid-segment. There is a first diagonal branch, which has a 90% stenosis. The stent is patent with mild in-stent restenosis. In the mid to distal segment there are several tandem stenoses of about 80%. 3. Left circumflex gives rise to two obtuse marginal branches. The first obtuse marginal branch has a 60% stenosis. The second obtuse marginal branch has an 80% stenosis. 4. Right coronary artery is technically a dominant vessel, although the posterior descending and posterolateral branch is not of very large caliber size. The proximal mid-segment of the right coronary has rather diffuse moderate luminal irregularities. There is a 75% tubular stenosis in the distal right coronary artery and then at the level of the bifurcation with the posterior descending and posterolateral branches there appears to be a 70% stenosis present. CONCLUSIONS: 1. Multivessel coronary artery disease. 2. Normal left ventricular systolic function. PLAN: Given the severity and extent of disease, we will consult Cardiothoracic Surgery for consideration of coronary artery bypass surgery. His diagonal branch and 2 obtuse marginal branches are approachable. The left anterior descending coronary, although graftable, does have poor distal runoff which may be an issue. We will have to discuss with Cardiothoracic Surgery. The right coronary we will have to see if it is large enough to actually bypass distally Percutaneous coronary intervention would require multiple, multiple stents and therefore we should pursue surgical intervention first. Right common femoral artery was closed with good hemostasis using a 5-Andorran VASCADE device. HemoBand applied to the right wrist. MD CIERRA Tenorio/SB , 09:16 AM , 09:41 AM
--- NOTE | 2017-10-01 13:02 | RADRPT ---
EXAM DATE: 10/01/2017 12:38 PM EDT AGE/SEX: 61 years / Male INDICATIONS: Pre op. Evaluate for pneumonia, pneumothorax, or communicable diseases. CLINICAL DATA: This is the patient's initial encounter. Patient reports that signs and symptoms have been present for 1 day and indicates a pain score of 0/10. MEDICAL/SURGICAL HISTORY: Hypertension. None. COMPARISON: No prior exams available for comparison. FINDINGS: A single AP view of the chest demonstrates the lungs to be symmetrically aerated without evidence of mass, infiltrate or effusion. Mild basilar atelectasis. The cardiomediastinal contours are unremarkab le. Osseous structures are intact. CONCLUSION: No active disease. Minimal basilar atelectasis. Previous right shoulder joint replacement. Electronically signed by: Ron Hickey MD 10/01/2017 1:01 PM EDT
[2017-10-01 13:08] LABS: AUTOMATED NEUTROPHIL # 4.9 TH/MM3 (1.8-7.7); BASOPHIL % 0.6 % (0.0-2.0); EOSINOPHIL # 0.4 TH/MM3 (0-0.4); EOSINOPHIL % 5.9 % (0.0-4.0); HEMATOCRIT 48.5 % (39.0-51.0); HEMOGLOBIN 16.2 GM/DL (13.0-17.0); LYMPH % 21.3 % (9.0-44.0); LYMPHOCYTE # 1.6 TH/MM3 (1.0-4.8); MEAN CELL VOLUME 92.6 FL (80.0-100.0); MEAN CORPUSCULAR HGB CONC 33.5 % (32.0-36.0); MONO % 4.5 % (0.0-8.0); MONOCYTE # 0.3 TH/MM3 (0-0.9); NEUT % 67.7 % (16.0-70.0); PLATELET COUNT 207 TH/MM3 (150-450); RED BLOOD COUNT 5.24 MIL/MM3 (4.50-5.90); RED CELL DISTRIBUTION WIDTH 14.8 % (11.6-17.2); WHITE BLOOD COUNT 7.3 TH/MM3 (4.0-11.0)
[2017-10-01 13:19] LABS: PROTHROMBIN TIME - PATIENT 10.4 SEC (9.8-11.6)
[2017-10-01 13:31] LABS: ALKALINE PHOSPHATASE 44 U/L (45-117); ALT (GPT) 23 U/L (12-78); TOTAL BILIRUBIN ADULT 0.6 MG/DL (0.2-1.0); TOTAL PROTEIN 6.9 GM/DL (6.4-8.2)
[2017-10-01 13:34] LABS: ALBUMIN 3.6 GM/DL (3.4-5.0); AST (GOT) 18 U/L (15-37); BLOOD UREA NITROGEN 17 MG/DL (7-18); CALCIUM 9.1 MG/DL (8.5-10.1); CHLORIDE 104 MEQ/L (98-107); CREATININE 0.75 MG/DL (0.60-1.30); GLOMERULAR FILTRATION RATE 106 ML/MIN (>89); GLUCOSE,RANDOM 153 MG/DL (74-106); SODIUM (NA) 140 MEQ/L (136-145)
[2017-10-01 14:13] LABS: HEMOGLOBIN A1C 5.9 % (4.3-6.0)
--- NOTE | 2017-10-01 15:51 | PD.CAR.PN ---
CVT Progress Note Subjective/Hospital Course: pt seen and evaluated / full consult to follow sts score discussed with pt RISK SCORES About the STS Risk Calculator Procedure: CAB Only Risk of Mortality: 0.524% Morbidity or Mortality: 7.302% Long Length of Stay: 2.355% Short Length of Stay: 63.558% Permanent Stroke: 0.45% Prolonged Ventilation: 5.133% DSW Infection: 0.384% Renal Failure: 1.048% Reoperation: 2.891% Objective: Vital Signs Date Time Temp Pulse Resp B/P (MAP) Pulse Ox O2 Delivery O2 Flow Rate FiO2 10/01/17 09:28 96 Room Air 10/01/17 07:20 98.7 62 18 124/80 (95) 96 Labs: Laboratory Tests Test 10/01/17 12:05 White Blood Count 7.3 TH/MM3 (4.0-11.0) Red Blood Count 5.24 MIL/MM3 (4.50-5.90) Hemoglobin 16.2 GM/DL (13.0-17.0) Hematocrit 48.5 % (39.0-51.0) Mean Corpuscular Volume 92.6 FL (80.0-100.0) Mean Corpuscular Hemoglobin 31.0 PG (27.0-34.0) Mean Corpuscular Hemoglobin Concent 33.5 % (32.0-36.0) Red Cell Distribution Width 14.8 % (11.6-17.2) Platelet Count 207 TH/MM3 (150-450) Mean Platelet Volume 10.0 FL (7.0-11.0) Neutrophils (%) (Auto) 67.7 % (16.0-70.0) Lymphocytes (%) (Auto) 21.3 % (9.0-44.0) Monocytes (%) (Auto) 4.5 % (0.0-8.0) Eosinophils (%) (Auto) 5.9 % (0.0-4.0) Basophils (%) (Auto) 0.6 % (0.0-2.0) Neutrophils # (Auto) 4.9 TH/MM3 (1.8-7.7) Lymphocytes # (Auto) 1.6 TH/MM3 (1.0-4.8) Monocytes # (Auto) 0.3 TH/MM3 (0-0.9) Eosinophils # (Auto) 0.4 TH/MM3 (0-0.4) Basophils # (Auto) 0.0 TH/MM3 (0-0.2) CBC Comment DIFF FINAL Differential Comment Prothrombin Time 10.4 SEC (9.8-11.6) Prothromb Time International Ratio 1.0 RATIO Nasal Screen MRSA (PCR) MRSA NOT DETECTED (NOT Blood Urea Nitrogen 17 MG/DL (7-18) Creatinine 0.75 MG/DL (0.60-1.30) Random Glucose 153 MG/DL (74-106) Total Protein 6.9 GM/DL (6.4-8.2) Albumin 3.6 GM/DL (3.4-5.0) Calcium Level 9.1 MG/DL (8.5-10.1) Alkaline Phosphatase 44 U/L (45-117) Aspartate Amino Transf (AST/SGOT) 18 U/L (15-37) Alanine Aminotransferase (ALT/SGPT) 23 U/L (12-78) Total Bilirubin 0.6 MG/DL (0.2-1.0) Sodium Level 140 MEQ/L (136-145) Potassium Level 4.0 MEQ/L (3.5-5.1) Chloride Level 104 MEQ/L (98-107) Carbon Dioxide Level 27.0 MEQ/L (21.0-32.0) Anion Gap 9 MEQ/L (5-15) Estimat Glomerular Filtration Rate 106 ML/MIN (>89) Hemoglobin A1c 5.9 % (4.3-6.0) Result Diagram: 10/01/17 1205 10/01/17 1205 Alina Roman Oct 01, 2017 15:51
--- NOTE | 2017-10-01 16:10 | MB ---
cc: Alina Roman Jacqueline R ARNP DATE: 10/01/2017 DATE OF : 1955 HISTORY OF PRESENT ILLNESS: A 61-year-old male with history of coronary artery disease, prior stent, who has been having chest pain over the past few weeks, was seen by Dr. Mckeon in the office. He took apparently some old nitro and aspirin and got some relief. The pain has been mainly with exertion. He had no syncope. No paroxysmal nocturnal dyspnea, no orthopnea, no shortness of breath. The pain did radiate to his back and down his left arm, which has been more intense than previous. His past medical history includes coronary artery disease with prior stent to the LAD in 2004. The patient had a nuclear stress test, which showed a normal EF of 62%, moderate defect involving the mid-inferior and inferoapical segments. The patient did undergo cardiac catheterization today, which showed left main disease of 30%, proximal LAD 30%, mid-distal LAD 90%, diagonal 90%, the OM 80% and the RCA 80%. The EF on the catheterization was 60%. We were consulted to evaluate for coronary artery bypass grafting. PAST MEDICAL HISTORY: Includes coronary artery disease, hypertension, hyperlipidemia, history of gastritis, chronic low back pain, obesity with a BMI of 39. PAST SURGICAL HISTORY: Includes colonoscopy, EGD, history of a Lap-Band, umbilical hernia repair. He has had some lumbar injections in the past, right shoulder replacement, tonsillectomy, history of total hip replacement. ALLERGIES: THE PATIENT HAS NO KNOWN ALLERGIES. HOME MEDICATIONS: Include: 1. Atenolol. 2. Aspirin. 3. Lortab. 4. Lisinopril/hydrochlorothiazide. 5. Ambien. SOCIAL HISTORY: , works as a contractor. Has 1 son. No tobacco. REVIEW OF SYSTEMS: GENERAL: No night sweats, fever, heat and cold intolerance. SKIN: No psoriasis, itching or hives. HEENT: No blurred vision, hearing loss. RESPIRATORY: No cough, shortness of breath. CARDIOVASCULAR: As above in the HPI. GASTROINTESTINAL: No nausea, vomiting, constipation. GENITOURINARY: No burning, frequency, urgency. CENTRAL NERVOUS SYSTEM: No history of TIA, CVA or seizure disorder. ENDOCRINOLOGY: No history of diabetes. PHYSICAL EXAMINATION: VITAL SIGNS: Blood pressure 124/80, heart rate of 62, afebrile. Room air saturation 96%. GENERAL: The patient is awake, alert, in no acute distress. HEENT: Head is normocephalic, atraumatic. Pupils are equal and reactive. Oral mucosa pink, moist. NECK: Supple. No JVD. CARDIOVASCULAR: Sounds S1, S2. Regular rate and rhythm. No audible rubs, murmurs, or gallops. LUNGS: Clear to auscultation. No wheezes, rales or rhonchi. ABDOMEN: Soft, nontender. No masses or organomegaly. EXTREMITIES: He has a TR-Band on the right wrist. Good distal pulses. LABORATORY DATA: Shows hemoglobin of 16, hematocrit of 48, white cell count of 7, platelet count of 207. Sodium 140, potassium 4.0, BUN is 17, creatinine 0.75. INR 1.0. MRSA screen non-detected. Urinalysis is pending. Chest x-ray is unremarkable. There is some previous right shoulder joint replacement. IMPRESSION: This is a 61-year-old male with a history of multifactorial coronary disease risk factors including age, obesity, hypertension, hyperlipidemia, prior stenting, now with multivessel coronary artery disease as above in the History Of Present Illness. PLAN: The plan at this time is to schedule for coronary artery bypass grafting x3 on 10/14/2017. Full workup is still in progress. STS data will be documented in the electronic record. FEV1 is 2.51. LUIZA Rincon MD JRT/MARCO , 03:40 PM , 04:09 PM
--- NOTE | 2017-10-01 17:08 | RADRPT ---
EXAM DATE: 10/01/2017 5:03 PM EDT AGE/SEX: 61 years / Male INDICATIONS: Pre op cardiac surgery. CLINICAL DATA: This is the patient's initial encounter. Patient reports that signs and symptoms have been present for 1 day and indicates a pain score of 1/10. MEDICAL/SURGICAL HISTORY: . Hypercholesterolemia. Numbness bilateral hands. Hypertension. Arthr itis. . Lap band. Hernia repair. Right hip replacement. right total shoulder. Left chin surgery. Rig ht knee scope. COMPARISON: No prior exams available for comparison. TECHNIQUE: Venous ultrasound of both lower extremities was performed from the inguinal ligament to t he proximal calf. Real-time, color Doppler and spectral tracing, compression and augmentation techni ques were used. FINDINGS: Right Leg: Normal compression of the deep venous system from the inguinal region to the proximal samanta f. No echogenic clot is seen. Normal response of the venous system to augmentation and respiration. Left Leg: Normal compression of the deep venous system from the inguinal region to the proximal calf . No echogenic clot is seen. Normal response of the venous system to augmentation and respiration. Other: None. CONCLUSION: The study is negative for bilateral lower extremity deep venous thrombosis. Electronically signed by: Manuelito Anderson MD 10/01/2017 5:07 PM EDT
--- NOTE | 2017-10-01 17:09 | RADRPT ---
EXAM DATE: 10/01/2017 5:01 PM EDT AGE/SEX: 61 years / Male INDICATIONS: Pre op cardiac surgery. CLINICAL DATA: This is the patient's initial encounter. Patient reports that signs and symptoms have been present for 1 day and indicates a pain score of 0/10. MEDICAL/SURGICAL HISTORY: . Hypercholesterolemia. Numbness bilateral hands. Hypertension. Arthr itis. . Lap band. Hernia repair. Right hip replacement. right total shoulder. Left chin surgery. Rig ht knee scope. COMPARISON: No prior exams available for comparison. MEASUREMENTS: RIGHT THIGH: Proximal:__6 mm Mid:__ 5 mm Distal:__4 mm LEFT THIGH: Proximal:__7 mm Mid:__4 mm Distal:__4 mm RIGHT CALF: Proximal:__3 mm Mid:__3 mm Distal:__3 mm LEFT CALF: Proximal:__3 mm Mid:__3 mm Distal:__3 mm FINDINGS: The venous system of the lower extremities are patent by color Doppler imaging. Measurements of the leg veins (in mm) are listed above. CONCLUSION: Patent saphenous veins bilaterally with measurements as above. Electronically signed by: Manuelito Anderson MD 10/01/2017 5:08 PM EDT
--- NOTE | 2017-10-01 17:10 | RADRPT ---
EXAM DATE: 10/01/2017 5:07 PM EDT AGE/SEX: 61 years / Male INDICATIONS: Pre op cardiac surgery. CLINICAL DATA: This is the patient's initial encounter. Patient reports that signs and symptoms have been present for 1 day and indicates a pain score of 0/10. MEDICAL/SURGICAL HISTORY: . Hypercholesterolemia. Numbness bilateral hands. Hypertension. Arthr itis. . Lap band. Hernia repair. Right hip replacement. right total shoulder. Left chin surgery. Rig ht knee scope. COMPARISON: No prior exams available for comparison. VELOCITY PARAMETERS: ICA/CCA Ratio: Right 0.9 , Left 0.9 ICA: Right 72 cm/sec, Left 76 cm/sec CCA: Right 81 cm/sec, Left 86 cm/sec ECA: Right 111 cm/sec, Left 88 cm/sec Vertebral: Right 54 cm/sec antegrade, Left 39 cm/sec antegrade FINDINGS: Right Carotid: Mild arteriosclerotic plaque is visualized.The waveforms are within normal limits. Left Carotid: No significant plaque is visualized. The waveforms are within normal limits. Other: None. CONCLUSION: No evidence of flow-limiting carotid stenosis. Electronically signed by: Manuelito Anderson MD 10/01/2017 5:09 PM EDT
== END 2017-10-01 16:15 | disposition home or self-care (01) ==
LOC: HDIC 06:42 → HDOC 06:42
PROVIDERS: ATTEND Internal Medicine
DX: I25.110 Atherosclerotic heart disease of native coronary artery with unstable angina pectoris (principal); I10 Essential (primary) hypertension; E78.5 Hyperlipidemia, unspecified; E78.00 Pure hypercholesterolemia, unspecified; M19.90 Unspecified osteoarthritis, unspecified site; R82.79 Other abnormal findings on microbiological examination of urine; Z01.818 Encounter for other preprocedural examination; Z01.811 Encounter for preprocedural respiratory examination; Z96.619 Presence of unspecified artificial shoulder joint; Z96.641 Presence of right artificial hip joint
CPT/HCPCS: 71045; 80053; 83036; 85025; 85610; 86850; 86900; 86901; 87086; 87641; 93458; 93880; 93970; 93998; 94010; 99152; 99153; C1760; C1769; C1893; G0269; J1644; J2250; J3010; Q9967

== ENCOUNTER 2017-10-14 06:21 | Inpatient (IN) ==
[~2017-10-14 06:21] MED LIST changes: -ATEN50TA PO; -BACT800T5 PO; -CLIN300C5 PO; +Heparin - SQ 10,000 UNITS/ML Vial SQ ONE; -LISI-519 PO; +Metoprolol Tartrate 25 MG Tablet PO SCH; +ceFAZolin 2 GM Premix Inj 2 GM/50 ML PIGGYBACK IV.SIG ONE
[2017-10-14] MEDS ORDERED: Insulin Regular (For Infusion) 100 UNIT in Sodium Chlor 0.9% Inj 99 ML IV.CONT PRN ×2 (06:49→15:00)
[2017-10-14] MEDS ORDERED: Dextrose 50% in Water 50 ML Vial IV.PUSH PRN ×2 (06:49→12:00)
[2017-10-14] MEDS ORDERED: Sodium Chlor 0.9% Inj 500 ML IV.SIG SCH (07:00)
[2017-10-14] MEDS ORDERED: ceFAZolin Inj 2,000 MG in Sodium Chlor 0.9% Inj 80 ML IV.SIG SCH (07:00)
[2017-10-14] MEDS ORDERED: Sodium Chloride 0.9% Irr Bot 500 ML, ceFAZolin Inj 500 MG IRRIGATION SCH ×2 (07:00)
[2017-10-14] MEDS ORDERED: Chlorhexidine 4% Topical 120 APPLIC/120 ML Bottle TOPICAL SCH (07:00)
[2017-10-14] MEDS ORDERED: Chlorhexidine Gluconate 2% 1 Pack (2 Cloths) TOPICAL SCH (07:00)
[2017-10-14] MEDS ORDERED: Sodium Chlor 0.9% Inj 77.5 ML, Papaverine Inj 60 MG, Nitroglycerin Inj 100 MCG, dilTIAZ... IRRIGATION SCH ×3 (07:00)
[2017-10-14] MEDS ORDERED: Sodium Chlor 0.9% Inj 57.5 ML, Papaverine Inj 60 MG, Nitroglycerin Inj 100 MCG, Verapam... IRRIGATION SCH ×3 (07:15)
[2017-10-14] MEDS ORDERED: fentaNYL Citrate Inj 250 MCG/5 ML Ampul ONE (09:44)
[2017-10-14] MEDS ORDERED: Potassium Chlor 20 mEq Premix 40 MEQ/200 ML PIGGYBACK IV.SIG ONE (11:37)
[2017-10-14] MEDS ORDERED: RESP: Racemic Epinephrine 2.25% 0.5 ML Neb NEB PRN (12:00)
[2017-10-14] MEDS ORDERED: Calcium Chloride Inj 1 GM/10 ML Syringe IV.PUSH PRN (12:00)
[2017-10-14] MEDS ORDERED: Metoprolol Inj 5 MG/5 ML Vial IV.PUSH PRN (12:00)
[2017-10-14] MEDS ORDERED: Potassium Chlor 20 mEq Premix 20 MEQ/100 ML PIGGYBACK IV.SIG PRN ×3 (12:00)
[2017-10-14] MEDS ORDERED: Calcium Chloride Inj 1 GM in Sodium Chlor 0.9% Inj 100 ML IV.SIG PRN (12:00)
[2017-10-14] MEDS ORDERED: hydrALAZINE HCl Inj 20 MG/ML Vial IV.PUSH PRN (12:00)
[2017-10-14] MEDS ORDERED: Magnesium Sulfate Inj 2 GM in Sodium Chlor 0.9% Inj 96 ML IV.SIG PRN ×4 (12:00)
[2017-10-14] MEDS ORDERED: Phenylephrine Inj 40 MG in Sodium Chlor 0.9% Inj 496 ML IV.CONT PRN (12:00)
[2017-10-14] MEDS ORDERED: Post-op Orders (for Pharmacy) OTHER STA (12:00)
[2017-10-14] MEDS ORDERED: Clevidipine Inj 25 MG/50 ML VIAL IV.CONT PRN (12:00)
--- NOTE | 2017-10-14 12:48 | P.PCN ---
Date of procedure: 10/14/17 Procedure: PREPROCEDURE DIAGNOSES 1. Severe Multi Vessel Coronary Artery Disease. 2. Stable Angina POSTPROCEDURE DIAGNOSES Same SURGICAL PROCEDURE 1. Off-pump Coronary Artery Bypass Grafting x 3 with Left Internal Mammary Artery ([place]ORD) to Left Anterior Descending (LAD), reverse saphenous vein graft to Diagonal 1 (D1), reverse saphenous vein graft to the Obtuse Marginal 2 (OM2) branch of the Circumflex artery 2. Left Leg Endoscopic Vein [place] 3. Intraoperative Vein Mapping. SURGEON Hollie Garcia MD GRANITE CUTTER Manuelito Suárez, REFERRAL CLERKBlane Ya, [facility] ANESTHESIA General endotracheal NOZZLE CEMENT SPRAYER HELPER Huy Powers, SPECIAL EVENTS COORDINATOR Tonny Kaba MD PREPARATION ChloraPrep. COUNTS Needle, sponge, and instrument counts were correct. DRAINS Two 32-[place] mediastinal tubes. COMPLICATIONS None. INDICATIONS FOR PROCEDURE The patient is a 62-year-old presenting with chest pain. Patient was noted to have multi-vessel coronary artery disease. The patient is being brought to the operating room for surgical revascularization therapy. PROCEDURE Patient was brought to the operating room and placed supine on the OR table. Following the induction of adequate general endotracheal anesthesia and placement of appropriate monitoring devices, intraoperative vein mapping was performed which revealed suitable-caliber conduit in bilateral lower thighs with non-usable conduit below. The patient was then prepped and draped in standard sterile fashion. Next, 2500 units of intravenous heparin was given. The left greater saphenous vein was harvested endoscopically. This appeared to be a useable-caliber conduit. Simultaneously, a median sternotomy was performed and the left internal mammary artery dissected free off the posterior sternal table. The patient was systemically heparinized and anticoagulation monitored by serial ACT measurements. The internal mammary artery had excellent pulsatile flow in it and was a good-caliber conduit. The pericardium was then divided in the midline, the cradle created and targets analyzed. Of note, all of his coronary arteries were very heavily and diffusely diseased and the grafts were sewn to areas with soft plaque. At this point, all anastomoses were performed in a beating-heart fashion using the Xymogen stabilizing system. The left internal mammary artery was anastomosed to the distal LAD in an end-to- side fashion using 7-0 Prolene. Segment of saphenous vein graft was then anastomosed to the D1 in an end-to-side fashion using 7-0 Prolene. The final segment was anastomosed to OM2 in an end-to-side fashion using 7-0 Prolene. The proximal anastomoses were then constructed to the ascending aorta in a running manner using 6-0 Prolene. All anastomotic sites were inspected and appeared to be hemostatic and patent. Protamine solution was given. Strict hemostasis was assured. The closure was undertaken. 2 chest tubes were placed. The pericardium was reapproximated in the midline. The sternum was approximated using sternal wires. The muscular and fascial layer were then closed in 3 layers. The endoscopic vein harvest site was closed in 2 layers. The patient tolerated the procedure well and was transferred to CVICU in stable condition.
--- NOTE | 2017-10-14 13:12 | XR ---
EXAM DATE: 10/14/2017 1:08 PM EDT AGE/SEX: 62 years / Male INDICATIONS: Evaluate post CABG CLINICAL DATA: This is the patient's initial encounter. Patient reports that signs and symptoms have been present for 1 day and indicates a pain score of Nonresponsive. MEDICAL/SURGICAL HISTORY: Non-responsive. Non-responsive. COMPARISON: [facility] [place], CHEST SINGLE AP, 10/01/2017. . FINDINGS: ET tube, central venous catheter, mediastinal drain and left chest drain are in good position. Mccloud al wires are noted. Minimal parenchymal changes left base. Mild prominence the mediastinum probably rotation. CONCLUSION: Support apparatus in good position without pneumothorax. Minimal parenchymal changes left base Electronically signed by: Forrest Araujo MD 10/14/2017 1:10 PM EDT
[2017-10-14] MEDS ORDERED: Calcium Chloride Inj 1 GM/10 ML Syringe IV.CONT ONE (14:11)
[2017-10-14] MEDS ORDERED: Nitroglycerin Drip Premix 50 MG/250 ML BOTTLE IV.SIG ONE (14:11)
[2017-10-14] MEDS ORDERED: Dextrose 5% in Water Inj 100 ML IV.SIG ONE (14:11)
[2017-10-14] MEDS: Ketorolac Inj 30 MG/ML (IVP) Vial IV.PUSH PRN ×2 (14:11→22:06)
[2017-10-14] MEDS ORDERED: Dexmedetomidine Inj 200 MCG/2 ML Vial IV.CONT ONE (14:11)
[2017-10-14] MEDS ORDERED: Phenylephrine/NS 1000 MCG/10ML Syringe IV.PUSH ONE (14:11)
[2017-10-14] MEDS ORDERED: Lidocaine PF 1% Inj 5 ML Syringe INFILTRATN ONE (14:11)
[2017-10-14] MEDS ORDERED: Heparin - SQ 10,000 UNITS/ML Vial SQ ONE (14:11)
[2017-10-14] MEDS ORDERED: Protamine Sulfate Inj 250 MG/25 ML Vial IV.CONT ONE (14:11)
[2017-10-14] MEDS ORDERED: Dexmedetomidine Inj 200 MCG/50 ML INFUS..BTL IV.CONT PRN (15:00)
[2017-10-14] MEDS ORDERED: Dexmedetomidine Inj 200 MCG in Sodium Chlor 0.9% Inj 50 ML IV.CONT PRN (17:00)
[2017-10-14] MEDS: Albumin Human 5% Inj 250 ML IV.SIG PRN ×2 (19:11→22:40)
[2017-10-14] MEDS: fentaNYL Citrate Inj 100 MCG/2 ML Ampul IV.PUSH PRN ×3 (19:28→22:04)
[2017-10-14] MEDS: ceFAZolin 2 GM Premix Inj 2 GM/50 ML PIGGYBACK IV.SIG SCH (20:20)
[2017-10-15] MEDS: fentaNYL Citrate Inj 100 MCG/2 ML Ampul IV.PUSH PRN (00:57)
[2017-10-15] MEDS: Morphine Inj 4 MG/ML Vial IV.PUSH PRN ×2 (02:06→02:19)
[2017-10-15] MEDS: Ketorolac Inj 30 MG/ML (IVP) Vial IV.PUSH PRN (04:38)
[2017-10-15] MEDS: ceFAZolin 2 GM Premix Inj 2 GM/50 ML PIGGYBACK IV.SIG SCH ×3 (04:38→19:43)
[2017-10-15 05:12] LABS: Hemoglobin 12.5 gm/dL (13.0-17.0); Mean Corpuscular HGB Conc 32.9 % (32.0-36.0); Mean Corpuscular Hemoglobin 30.8 pg (27.0-34.0); Mean Corpuscular Volume 93.6 fL (80.0-100.0); Mean Platelet Volume 9.6 fL (7.0-11.0); Platelet Count 173 th/mm3 (150-450); Red Blood Count 4.07 mil/mm3 (4.50-5.90); Red Cell Distribution Width 14.9 % (11.6-17.2); White Blood Count 12.8 th/mm3 (4.0-11.0)
[2017-10-15 05:33] LABS: Anion Gap 10 meq/L (5-15); Blood Urea Nitrogen 11 mg/dL (7-18); Calcium 8.2 mg/dL (8.5-10.1); Carbon Dioxide 23.6 meq/L (21.0-32.0); Chloride 109 meq/L (98-107); Glomerular Filtration Rate Greater Than 89 mL/min (>89); Glucose,Random 99 mg/dL (74-106); Sodium 143 meq/L (136-145)
--- NOTE | 2017-10-15 06:23 | XR ---
EXAM DATE: 10/15/2017 6:12 AM EDT AGE/SEX: 62 years / Male INDICATIONS: Post CABG. CLINICAL DATA: This is the patient's subsequent encounter. Patient reports that signs and symptoms h ave been present for 2 days and indicates a pain score of 0/10. MEDICAL/SURGICAL HISTORY: Non-responsive. CABG. COMPARISON: [facility], CHEST 1V SINGLE AP, 10/14/2017. . FINDINGS: Patient has been extubated. Stable right IJ central line, mediastinal drain and left sided chest tube . Lungs are hypoaerated with mild pleural-parenchymal disease in the left lower lung zone. Cardiomedi astinal contours are stable. Remainder of the exam is unchanged. CONCLUSION: 1. Low lung volumes status post extubation. 2. Slight worsening left lower lobe pleural-parenchymal disease. Electronically signed by: Bert Michel MD 10/15/2017 6:22 AM EDT
[2017-10-15] MEDS ORDERED: Bisacodyl 10 MG Supp RECTAL PRN (08:27)
[2017-10-15] MEDS ORDERED: Sod Phosphate/Sod Biphosphate (Adult) Enema 133 ML Bottle RECTAL PRN (08:27)
[2017-10-15] MEDS ORDERED: Dextrose 50% in Water 50 ML Vial IV.PUSH PRN (08:27)
[2017-10-15] MEDS: Amiodarone 200 MG Tablet PO SCH ×2 (09:06→21:24)
[2017-10-15] MEDS: Multivitamin/Minerals Therapeutic Tablet PO SCH (09:06)
[2017-10-15] MEDS: Insulin NovoLOG Aspart Correctional Sugar Inj SQ SCH ×4 (12:04→22:29)
--- NOTE | 2017-10-15 12:22 | P.DIET ---
Nutritional Evaluation Type of nutrition evaluation: initial (MDC for diet education received s/p CABG x 3 on 10/14. Patient Navigator to provide education. Consult RD if complexities with diet education arise.)
--- NOTE | 2017-10-15 14:20 | P.PNCA ---
- Note CVT: Post Op Day #: 1 Subjective/Hospital Course: 61-year-old male, initally seen 10/01/17. With history of coronary artery disease, prior cardiac stent 2004, who has been having chest pain over the past few weeks, was seen by Dr. Mckeon in the office. He took apparently some old nitro and aspirin and got some relief. The pain has been mainly with exertion. He had no syncope. No paroxysmal nocturnal dyspnea, no orthopnea, no shortness of breath. The pain did radiate to his back and down his left arm, which has been more intense than previous. cardiac catheterization : showed left main disease of 30%, proximal LAD 30%, mid-distal LAD 90%, diagonal 90%, the OM 80% and the RCA 80%. The EF on the catheterization was 60%. We were consulted to evaluate for coronary artery bypass grafting. PAST MEDICAL HISTORY: Includes coronary artery disease, hypertension, hyperlipidemia, history of gastritis, chronic low back pain, obesity with a BMI of 39. 7/9 pt was electively admitted for surgery surgery: 1. Off-pump Coronary Artery Bypass Grafting x 3 with Left Internal Mammary Artery (ST[place]ORD) to Left Anterior Descending (LAD), reverse saphenous vein graft to Diagonal 1 (D1), reverse saphenous vein graft to the Obtuse Marginal 2 (OM2) branch of the Circumflex artery, Left Leg Endoscopic Vein [place] extubated after surgery 4000cc crystalloid , 250cc cell saver, 500cc EBL 7/10 weaned off dorcas gtt , on nasal cannula chest tube drained 400cc/ 12 hrs pain controlled / consider diuresing in am start BB in am / BP too labile to start . Objective: Vital Signs - 24 hr 10/14/17 13:55 10/14/17 14:18 10/14/17 16:02 Temperature 97 F L Pulse Rate Respiratory Rate 18 Blood Pressure Pulse Oximetry 94 L 10/14/17 16:30 10/14/17 16:38 10/14/17 16:59 Temperature 98 F 98.1 F Pulse Rate 58 L 56 L Respiratory Rate 20 18 Blood Pressure 129/70 Pulse Oximetry 98 10/14/17 19:00 10/14/17 20:00 10/14/17 20:22 Temperature 98.3 F Pulse Rate 58 L 61 Respiratory Rate 16 16 Blood Pressure 114/51 L Pulse Oximetry 97 10/14/17 20:45 10/14/17 20:53 10/14/17 23:00 Temperature Pulse Rate 61 66 Respiratory Rate 20 16 Blood Pressure Pulse Oximetry 97 10/15/17 00:00 10/15/17 00:07 10/15/17 00:08 Temperature 99.0 F Pulse Rate 63 Respiratory Rate 18 Blood Pressure 93/60 L 116/51 L Pulse Oximetry 99 99 10/15/17 02:08 10/15/17 02:21 10/15/17 03:00 Temperature Pulse Rate 65 Respiratory Rate 18 18 Blood Pressure Pulse Oximetry 95 10/15/17 03:04 10/15/17 04:00 10/15/17 05:07 Temperature 99.2 F Pulse Rate 65 70 Respiratory Rate 14 18 18 Blood Pressure 103/60 Pulse Oximetry 95 10/15/17 07:00 10/15/17 08:05 10/15/17 08:12 Temperature 97 F L Pulse Rate 72 66 Respiratory Rate 20 Blood Pressure 103/57 L Pulse Oximetry 94 L 96 10/15/17 08:45 10/15/17 10:50 10/15/17 12:18 Temperature 98.6 F Pulse Rate 66 82 Respiratory Rate 17 20 Blood Pressure 103/57 L Pulse Oximetry 97 96 96 GENERAL: A&O x 3 SKIN: Warm and dry. prevena dressing to chest HEAD: Normocephalic. EYES: No scleral icterus. No injection or drainage. NECK: Supple, trachea midline. No JVD or lymphadenopathy. CARDIOVASCULAR: Regular rate and rhythm without murmurs, gallops, or rubs. RESPIRATORY: Breath sounds equal bilaterally. No accessory muscle use. chest tube to wall suction / drained 400cc/ 12 hrs / mild general edema GASTROINTESTINAL: Abdomen soft, non-tender, nondistended. MUSCULOSKELETAL: No cyanosis, or edema. BACK: Nontender without obvious deformity. No CVA tenderness. Labs: Laboratory Results - last 12 hr 10/14/17 10/15/17 10/15/17 07:02 02:01 04:30 WBC 12.8 H RBC 4.07 L Hgb 12.5 L Hct 38.0 L MCV 93.6 MCH 30.8 MCHC 32.9 RDW 14.9 Plt Count 173 MPV 9.6 Sodium Potassium Chloride Carbon Dioxide Anion Gap BUN Creatinine Estimated GFR POC Glucose 89 Random Glucose Calcium Magnesium Blood Type O Positive Antibody Screen Negative MTS Gel Crossmatch See Detail 10/15/17 10/15/17 10/15/17 04:30 04:34 06:10 WBC RBC Hgb Hct MCV MCH MCHC RDW Plt Count MPV Sodium 143 Potassium 4.0 Chloride 109 H Carbon Dioxide 23.6 Anion Gap 10 BUN 11 Creatinine 0.55 L Estimated GFR Greater than 89 POC Glucose 99 96 Random Glucose 99 Calcium 8.2 L Magnesium 2.0 Blood Type Antibody Screen MTS Gel Crossmatch 10/15/17 07:35 WBC RBC Hgb Hct MCV MCH MCHC RDW Plt Count MPV Sodium Potassium Chloride Carbon Dioxide Anion Gap BUN Creatinine Estimated GFR POC Glucose 135 H Random Glucose Calcium Magnesium Blood Type Antibody Screen MTS Gel Crossmatch Result Diagrams: 10/15/17 04:30 10/15/17 04:30 EKG: NSR no acute changes - Plan (1) CAD (coronary artery disease) (2) Unstable angina Plan: ASA, statin , consider BB in am (3) S/P CABG x 3 Plan: OOB, statin , BB , ASA wean o2 ambulate pulm toileting transfer to [facility] (1) CAD (coronary artery disease) Qualifiers: Coronary Disease-Associated Artery/Lesion type: [place] artery
--- NOTE | 2017-10-15 14:31 | P.DCO ---
- Diagnosis (1) CAD (coronary artery disease) - Speech Therapy Instructions: Heart and Vascular Surgery patients *Special attention to sternal dressing Mandatory frequency Assess and evaluation, 4 days in a row The next week 3X week 2 times a week for 4 weeks 1 time a week for 5 weeks Schedule Heart and Vascular patients for full 60 day certification period Initial visit Review Open Heart Surgery Discharge Instructions (Sternal precautions, Activity, Elastic hose, Incision care, Driving, Incentive spirometry, Smoking, [place], Work and other) Need Betadine to paint incision Medication reconciliation Importance of follow up care/ check on appointments Make calendar record temperature daily When to call [facility] nurse, review instructions, phone list Incentive Spirometry, demonstration Visit 1- Begin discharge instruction for patient family and/ or caregiver using teach back method- Signs and symptoms of infection Disease characteristics Medicines and side effects Foods and nutrition/ appetite Infection control/ hand washing/ hygiene Visit 2- Continue teaching Discharge instructions- include additional information on smoking cessation , sternal dressing (sternal vac) Visit 3- Continue teaching- Cough and deep breathing, incision monitoring. Choose my plate Visit 4- Continue teaching- Discuss limitations Discuss how they are feeling Discuss progress toward goals Remaining visits- continue teaching and monitoring For any questions please call : Saturday 8am-5pm Heart & Vascular Surgery Office ( Dr. Garcia & Dr. Gandhi), After Hours / Nights (5pm -8am) Weekends and Holidays Please call [facility] Cardiac Intermediate Care Unit (CIC) Charge Nurse PREVENA Single Use Negative Wound Therapy System Caregiver Instruction Sheet 1. A Prevena dressing system was applied to the chest incision during surgery , to promote wound healing. It works via a suction device (negative pressure wound therapy) to remove low to moderate levels of exudate (drainage) and infectious materials. We recommend that the device stay in place for up to seven days, from day of surgery. 2. Day of Surgery____/12/24 Day of Removal / 3. The dressing should only be removed by a health childbirth and infant care teacher. Please arrange removal of device to coincide with Home Health visit and or with Nursing staff at Rehab 4. If skin reddening or irritation of skin occurs, or excessive drainage, please notify the Cardiovascular Surgeons office at [phone]. 5. Light showering is permissible; however the pump should be disconnected and placed in safe location, where it will not get wet. The dressing should not be exposed to direct spray or submerged in water. No bath tub / shower only. Ensure the end of the tubing attached to the dressing is facing down so that water does not enter the top of the tube. 6. To remove Prevena dressing: press purple button to turn off device / remove the suction. Then disconnect the tubing from the pump. The fixation strips should be stretched away from the skin and the dressing lifted at one corner and peeled back until it has been fully removed. 7. After removal, it is ok to shower daily using liquid dial soap and clean wash cloth, rinse and pat dry, and leave incision open to air dry. For any concerns regarding Prevena dressing, and or wounds, please contact Natasha Paul, patient navigator at [phone] or notify the Cardiovascular Surgeons office at [phone]. Incentive spirometry Q1 hr x 10, while awake, also use acapella device hourly whole awake Sternal Breast Bone Precautions: NO pushing or pulling, ( pt must use sternal pillow to support chest with all activities and with coughing ( takes up to 3 months breast bone to heal ) Daily incision care: ok to shower daily, no tub bath. Wash all incisions with liquid dial soap, clean wash cloth to each site, rinse and pat dry. Observe for any signs of infection, such as drainage which is dark yellow, feliz, green or foul smelling. Immediately report to the surgeon any drainage from the chest incision, or legs, and for any abnormal drainage from the chest tube sites. Notify surgeon if any temp >101.5 degrees F. When specialty dressing removed/ or if you do not have one, continue to shower daily as above, then rinse and pat incision dry and paint with betadine daily x 5 days. Allow steri strips to fall off if you have any. Avoid lotions, creams, salves, oils, etc. for the first month Please see attached forms for additional instructions regarding post Open Heart specialty wound vacuum dressings. LIZY or Prevena , Dressing to be removed by Nursing staff on _10/21/17 F/U appointment: as per DC instructions: PCP in 2 weeks, CV surgeon 2 weeks, Strategic Client Executive 3-4 weeks For any questions regarding incisions/ dressing / meds / post op care or above Symptoms, Saturday 8am-5pm Heart & Vascular Surgery Office ( Dr. Garcia & Dr. Gandhi), After Hours / Nights (5pm -8am) Weekends and Holidays Please call [facility] Cardiac Intermediate Care Unit (CIC) Charge Nurse - Home Health Nursing Order: Signs/symptoms of disease process, Wound care and dressing changes, Nursing assessment with vital signs - Certification I have seen patient Mich Cooper on 10/15/17. My clinical findings support the need for the requested home health care services because: Deconditioned with increased weakness I certify that my clinical findings support that this patient is homebound because: Post-op weakness (1) CAD (coronary artery disease) Qualifiers: Coronary Disease-Associated Artery/Lesion type: [place] artery
--- NOTE | 2017-10-15 17:23 | ECG ---
Date Performed: 10/15/2017 Time Performed: 06:03:38 PTAGE: 62 years EKG: Sinus rhythm Normal ECG PREVIOUS TRACING 01/28/17 @ 10.52 Since the previous tracing, no significant change noted DOCTOR: Kody Lantigua Interpretating Date/Time 10/15/2017 17:21:56
[2017-10-15] MEDS: Docusate Sodium 100 MG Capsule PO SCH (21:24)
[2017-10-16] MEDS ORDERED: Insulin NovoLOG Aspart Correctional Sugar Inj SQ SCH (02:00)
[2017-10-16] MEDS: Insulin NovoLOG Aspart Correctional Sugar Inj SQ SCH ×6 (02:05→22:01)
[2017-10-16] MEDS: ceFAZolin 2 GM Premix Inj 2 GM/50 ML PIGGYBACK IV.SIG SCH (03:38)
[2017-10-16] MEDS: Docusate Sodium 100 MG Capsule PO SCH ×2 (08:19→21:07)
[2017-10-16] MEDS: Multivitamin/Minerals Therapeutic Tablet PO SCH (08:19)
[2017-10-16] MEDS: Amiodarone 200 MG Tablet PO SCH ×2 (08:19→21:07)
[2017-10-16] MEDS: Polyethylene Glycol 3350 17 GM Packet PO SCH (08:20)
[2017-10-16] MEDS: Metoprolol Tartrate 25 MG Tablet PO SCH ×2 (10:19→21:07)
--- NOTE | 2017-10-16 13:36 | P.PNCA ---
- Note Subjective/Hospital Course: 61-year-old male, initally seen 10/01/17. With history of coronary artery disease, prior cardiac stent 2004, who has been having chest pain over the past few weeks, was seen by Dr. Mckeon in the office. He took apparently some old nitro and aspirin and got some relief. The pain has been mainly with exertion. He had no syncope. No paroxysmal nocturnal dyspnea, no orthopnea, no shortness of breath. The pain did radiate to his back and down his left arm, which has been more intense than previous. cardiac catheterization : showed left main disease of 30%, proximal LAD 30%, mid-distal LAD 90%, diagonal 90%, the OM 80% and the RCA 80%. The EF on the catheterization was 60%. We were consulted to evaluate for coronary artery bypass grafting. PAST MEDICAL HISTORY: Includes coronary artery disease, hypertension, hyperlipidemia, history of gastritis, chronic low back pain, obesity with a BMI of 39. 7/9 pt was electively admitted for surgery surgery: 1. Off-pump Coronary Artery Bypass Grafting x 3 with Left Internal Mammary Artery (ST[place]) to Left Anterior Descending (LAD), reverse saphenous vein graft to Diagonal 1 (D1), reverse saphenous vein graft to the Obtuse Marginal 2 (OM2) branch of the Circumflex artery, Left Leg Endoscopic Vein [place] extubated after surgery 4000cc crystalloid , 250cc cell saver, 500cc EBL 10/15 weaned off dorcas gtt , on nasal cannula chest tube drained 400cc/ 12 hrs pain controlled / consider diuresing in am start BB in am / BP too labile to start 10/16 doing well chest tube drained 150cc/ 12 hrs weaning 02/ transfer to step down unit gentle diuresis . Objective: Vital Signs - 24 hr 10/15/17 14:25 10/15/17 15:00 10/15/17 15:57 Temperature Pulse Rate 76 Respiratory Rate 16 18 Blood Pressure Pulse Oximetry 93 L 10/15/17 16:00 10/15/17 19:00 10/15/17 20:00 Temperature 100 F H 98.6 F Pulse Rate 89 92 H 92 H Respiratory Rate 20 18 Blood Pressure 115/57 L 125/66 Pulse Oximetry 92 L 95 10/15/17 20:45 10/15/17 20:59 10/15/17 22:50 Temperature Pulse Rate 93 H Respiratory Rate 20 18 Blood Pressure Pulse Oximetry 95 10/15/17 23:00 10/16/17 00:00 10/16/17 00:02 Temperature 98.5 F Pulse Rate 86 93 H 86 Respiratory Rate 18 Blood Pressure 114/63 Pulse Oximetry 95 95 10/16/17 03:00 10/16/17 03:09 10/16/17 04:00 Temperature Pulse Rate 87 90 Respiratory Rate 18 Blood Pressure 130/63 Pulse Oximetry 96 95 10/16/17 04:08 10/16/17 07:00 10/16/17 07:23 Temperature Pulse Rate 90 Respiratory Rate 18 Blood Pressure Pulse Oximetry 94 L 10/16/17 07:25 10/16/17 08:00 10/16/17 11:00 Temperature 98.2 F Pulse Rate 86 94 H Respiratory Rate 18 Blood Pressure 126/75 Pulse Oximetry 94 L 94 L 96 10/16/17 12:00 10/16/17 13:00 Temperature 98.3 F Pulse Rate 101 H 92 H Respiratory Rate 18 Blood Pressure 130/79 Pulse Oximetry 96 GENERAL: SKIN: Warm and dry. prevena dressing to chest , incision intact to left leg HEAD: Normocephalic. EYES: No scleral icterus. No injection or drainage. NECK: Supple, trachea midline. No JVD or lymphadenopathy. CARDIOVASCULAR: Regular rate and rhythm without murmurs, gallops, or rubs. RESPIRATORY: Breath sounds equal bilaterally. No accessory muscle use. GASTROINTESTINAL: Abdomen soft, non-tender, nondistended. MUSCULOSKELETAL: No cyanosis, or edema. BACK: Nontender without obvious deformity. No CVA tenderness. Labs: Laboratory Results - last 12 hr 10/16/17 10/16/17 02:05 06:27 POC Glucose 98 117 H Result Diagrams: 10/15/17 04:30 10/15/17 04:30 Telemetry: NSR - Plan (1) CAD (coronary artery disease) Plan: ASA, statin, BB OOB ambulate pulm toileting nebs ezpap leave chest tubes in (2) HTN (hypertension) Plan: controlled (4) S/P CABG x 3 Plan: OOB, statin , BB , ASA wean o2 ambulate pulm toileting transfer to stepdown (5) Unstable angina Plan: ASA, statin , consider BB in am (1) CAD (coronary artery disease) Qualifiers: Coronary Disease-Associated Artery/Lesion type: [place] artery (2) HTN (hypertension) Qualifiers: Hypertension type: essential hypertension Qualified Code(s): I10 - Essential (primary) hypertension
[2017-10-17 05:00] LABS: Anion Gap 9 meq/L (5-15); Blood Urea Nitrogen 10 mg/dL (7-18); Calcium 8.5 mg/dL (8.5-10.1); Chloride 104 meq/L (98-107); Glomerular Filtration Rate Greater Than 89 mL/min (>89); Glucose,Random 103 mg/dL (74-106); Magnesium 2.2 mg/dL (1.5-2.5); Potassium 3.9 meq/L (3.5-5.1); Sodium 140 meq/L (136-145)
[2017-10-17] MEDS: Insulin NovoLOG Aspart Correctional Sugar Inj SQ SCH ×3 (08:33→16:44)
[2017-10-17] MEDS: Multivitamin/Minerals Therapeutic Tablet PO SCH (08:44)
[2017-10-17] MEDS: Amiodarone 200 MG Tablet PO SCH ×2 (08:44→21:24)
[2017-10-17] MEDS: Lisinopril 5 MG Tablet PO SCH (08:44)
[2017-10-17] MEDS: Docusate Sodium 100 MG Capsule PO SCH ×2 (08:44→21:24)
[2017-10-17] MEDS: Polyethylene Glycol 3350 17 GM Packet PO SCH (08:45)
[2017-10-17] MEDS: Metoprolol Tartrate 25 MG Tablet PO SCH ×2 (08:46→21:24)
--- NOTE | 2017-10-17 14:25 | P.PNCA ---
- Note Subjective/Hospital Course: 61-year-old male, initally seen 10/01/17. With history of coronary artery disease, prior cardiac stent 2004, who has been having chest pain over the past few weeks, was seen by Dr. Mckeon in the office. He took apparently some old nitro and aspirin and got some relief. The pain has been mainly with exertion. He had no syncope. No paroxysmal nocturnal dyspnea, no orthopnea, no shortness of breath. The pain did radiate to his back and down his left arm, which has been more intense than previous. cardiac catheterization : showed left main disease of 30%, proximal LAD 30%, mid-distal LAD 90%, diagonal 90%, the OM 80% and the RCA 80%. The EF on the catheterization was 60%. We were consulted to evaluate for coronary artery bypass grafting. PAST MEDICAL HISTORY: Includes coronary artery disease, hypertension, hyperlipidemia, history of gastritis, chronic low back pain, obesity with a BMI of 39. 7/9 pt was electively admitted for surgery surgery: 1. Off-pump Coronary Artery Bypass Grafting x 3 with Left Internal Mammary Artery ([place]) to Left Anterior Descending (LAD), reverse saphenous vein graft to Diagonal 1 (D1), reverse saphenous vein graft to the Obtuse Marginal 2 (OM2) branch of the Circumflex artery, Left Leg Endoscopic Vein [place] extubated after surgery 4000cc crystalloid , 250cc cell saver, 500cc EBL 10/15 weaned off dorcas gtt , on nasal cannula chest tube drained 400cc/ 12 hrs pain controlled / consider diuresing in am start BB in am / BP too labile to start 10/16 doing well chest tube drained 150cc/ 12 hrs weaning 02/ transfer to step down unit gentle diuresis 10/17 doing well , chest tube dc without difficulty Eforce site checked gentle diuresis + BM, eval for dc in am . Objective: Vital Signs - 24 hr 10/16/17 15:00 10/16/17 16:00 10/16/17 17:00 Temperature Pulse Rate 85 82 89 Respiratory Rate 16 Blood Pressure 119/64 Pulse Oximetry 94 L 94 L 10/16/17 18:00 10/16/17 19:00 10/16/17 19:05 Temperature Pulse Rate 89 87 86 Respiratory Rate 18 18 Blood Pressure Pulse Oximetry 93 L 10/16/17 20:00 10/16/17 20:47 10/16/17 21:00 Temperature 98.4 F Pulse Rate 90 90 92 H Respiratory Rate 18 Blood Pressure 126/72 Pulse Oximetry 95 10/16/17 22:00 10/16/17 23:00 10/17/17 00:00 Temperature 98.3 F Pulse Rate 88 79 78 Respiratory Rate 17 18 Blood Pressure 101/57 L Pulse Oximetry 96 10/17/17 01:00 10/17/17 02:00 10/17/17 03:00 Temperature Pulse Rate 82 78 84 Respiratory Rate Blood Pressure Pulse Oximetry 10/17/17 04:00 10/17/17 05:00 10/17/17 06:00 Temperature 98.4 F Pulse Rate 78 77 85 Respiratory Rate 18 Blood Pressure 108/85 Pulse Oximetry 94 L 10/17/17 07:00 10/17/17 07:08 10/17/17 08:00 Temperature 98.1 F Pulse Rate 77 75 Respiratory Rate 18 18 Blood Pressure 113/71 Pulse Oximetry 94 L 94 L 10/17/17 08:07 10/17/17 08:08 10/17/17 09:00 Temperature Pulse Rate 82 82 Respiratory Rate 18 18 Blood Pressure Pulse Oximetry 94 L 10/17/17 10:00 10/17/17 11:00 10/17/17 11:58 Temperature 98.0 F Pulse Rate 76 72 83 Respiratory Rate 18 Blood Pressure 103/66 Pulse Oximetry 94 L 10/17/17 13:00 10/17/17 13:41 Temperature Pulse Rate 84 85 Respiratory Rate Blood Pressure Pulse Oximetry GENERAL: A&O x 3 SKIN: Warm and dry. prevena to lnida , incision to left leg HEAD: Normocephalic. EYES: No scleral icterus. No injection or drainage. NECK: Supple, trachea midline. No JVD or lymphadenopathy. CARDIOVASCULAR: Regular rate and rhythm without murmurs, gallops, or rubs. RESPIRATORY: Breath sounds equal bilaterally. No accessory muscle use. GASTROINTESTINAL: Abdomen soft, non-tender, nondistended. MUSCULOSKELETAL: No cyanosis, or edema. BACK: Nontender without obvious deformity. No CVA tenderness. Labs: Laboratory Results - last 12 hr 10/14/17 10/17/17 10/17/17 07:02 03:50 08:24 Sodium 140 Potassium 3.9 Chloride 104 Carbon Dioxide 27.0 Anion Gap 9 BUN 10 Creatinine 0.66 Estimated GFR Greater than 89 POC Glucose 114 H Random Glucose 103 Calcium 8.5 Magnesium 2.2 MTS Gel Crossmatch See Detail 10/17/17 11:31 Sodium Potassium Chloride Carbon Dioxide Anion Gap BUN Creatinine Estimated GFR POC Glucose 130 H Random Glucose Calcium Magnesium MTS Gel Crossmatch Result Diagrams: 10/15/17 04:30 10/17/17 03:50 Telemetry: NSR - Plan (1) CAD (coronary artery disease) Plan: ASA, statin, BB OOB ambulate pulm toileting nebs ezpap chest tubes dc (2) HTN (hypertension) Plan: controlled (4) S/P CABG x 3 Plan: OOB, statin , BB , ASA wean o2 ambulate pulm toileting transfer to stepdown (5) Unstable angina Plan: ASA, statin , consider BB in am (1) CAD (coronary artery disease) Qualifiers: Coronary Disease-Associated Artery/Lesion type: [place] artery (2) HTN (hypertension) Qualifiers: Hypertension type: essential hypertension Qualified Code(s): I10 - Essential (primary) hypertension
[2017-10-17] MEDS ORDERED: Zolpidem Tartrate 5 MG Tablet PO PRN (21:00)
[2017-10-18 03:50] LABS: Anion Gap 8 meq/L (5-15); Blood Urea Nitrogen 12 mg/dL (7-18); Calcium 8.5 mg/dL (8.5-10.1); Carbon Dioxide 27.9 meq/L (21.0-32.0); Chloride 104 meq/L (98-107); Glomerular Filtration Rate Greater Than 89 mL/min (>89); Glucose,Random 91 mg/dL (74-106); Magnesium 2.1 mg/dL (1.5-2.5); Potassium 3.9 meq/L (3.5-5.1); Sodium 140 meq/L (136-145)
--- NOTE | 2017-10-18 05:11 | XR ---
EXAM DATE: 10/18/2017 4:27 AM EDT AGE/SEX: 62 years / Male INDICATIONS: Evaluate for pneumothorax. CLINICAL DATA: This is the patient's subsequent encounter. Patient reports that signs and symptoms h ave been present for 4 - 6 days and indicates a pain score of Nonresponsive. MEDICAL/SURGICAL HISTORY: Non-responsive. CABG. COMPARISON: [facility] [place], CHEST 1V SINGLE AP, 10/15/2017. . FINDINGS: A single AP view of the chest demonstrates previous CABG. There is subsegmental atelectasis left lung base. Heart mildly enlarged. Support lines and tubes have been removed. No pneumothorax.. The cardi omediastinal contours are unremarkable. Osseous structures are intact. CONCLUSION: Left basilar subsegmental atelectasis. Lungs are better aerated compared to previous study. Electronically signed by: Chano Sanchez MD 10/18/2017 5:10 AM EDT
[2017-10-18] MEDS: Multivitamin/Minerals Therapeutic Tablet PO SCH (09:10)
[2017-10-18] MEDS: Amiodarone 200 MG Tablet PO SCH (09:11)
[2017-10-18] MEDS: Metoprolol Tartrate 25 MG Tablet PO SCH (09:11)
[2017-10-18] MEDS: Lisinopril 5 MG Tablet PO SCH (09:11)
[2017-10-18] MEDS: Docusate Sodium 100 MG Capsule PO SCH (09:12)
[2017-10-18] MEDS: Polyethylene Glycol 3350 17 GM Packet PO SCH (11:58)
--- NOTE | 2017-10-18 12:58 | P.DS ---
Date of admission: 10/14/17 06:21 Primary care physician: Tonny John MD Attending physician on discharge: Hollie Garcia Anticipated date of discharge: 10/18/17 Brief History from admission: 1-year-old male, initally seen 10/01/17. With history of coronary artery disease , prior cardiac stent 2004, who has been having chest pain over the past few weeks, was seen by Dr. Mckeon in the office. He took apparently some old nitro and aspirin and got some relief. The pain has been mainly with exertion. He had no syncope. No paroxysmal nocturnal dyspnea, no orthopnea, no shortness of breath. The pain did radiate to his back and down his left arm, which has been more intense than previous. cardiac catheterization : showed left main disease of 30%, proximal LAD 30%, mid-distal LAD 90%, diagonal 90%, the OM 80% and the RCA 80%. The EF on the catheterization was 60%. We were consulted to evaluate for coronary artery bypass grafting. PAST MEDICAL HISTORY: Includes coronary artery disease, hypertension, hyperlipidemia, history of gastritis, chronic low back pain, obesity with a BMI of 39. DS: Diagnosis - Discharge Diagnosis (1) CAD (coronary artery disease) Status: Acute (2) HTN (hypertension) Status: Acute (3) Hyperlipemia Status: Acute (4) S/P CABG x 3 Status: Acute (5) Unstable angina Status: Acute DS: Medications - Discharge Medications Prescriptions: amiodarone 200 mg PO Q12HR #28 tab atorvastatin 40 mg PO DAILY #30 tab clopidogrel [Plavix] 75 mg PO DAILY #30 tab docusate sodium [DOK] 100 mg PO BID #60 cap hydrocodone-acetaminophen 1 tab PO Q4H PRN #40 tab PRN Reason: Pain Scale 1 To 5 metoprolol tartrate 25 mg PO BID #60 tab byovnmio-hvkm-WU-calcium-mins [Thera M Plus (ferrous fumarat)] 1 tab PO DAILY # 30 tab DS: Summary Hospital Course: 10/14 pt was electively admitted for surgery surgery: 1. Off-pump Coronary Artery Bypass Grafting x 3 with Left Internal Mammary Artery ([place]) to Left Anterior Descending (LAD), reverse saphenous vein graft to Diagonal 1 (D1), reverse saphenous vein graft to the Obtuse Marginal 2 (OM2) branch of the Circumflex artery, Left Leg Endoscopic Vein [place] extubated after surgery 4000cc crystalloid , 250cc cell saver, 500cc EBL 10/15 weaned off dorcas gtt , on nasal cannula chest tube drained 400cc/ 12 hrs pain controlled / consider diuresing in am start BB in am / BP too labile to start 10/16 doing well chest tube drained 150cc/ 12 hrs weaning 02/ transfer to step down unit gentle diuresis 10/17 doing well , chest tube dc without difficulty Eforce site checked gentle diuresis + BM, eval for dc in am 10/18 pt stable for discharge, on room air rhythm stable - Time Spent with Patient Total time spent providing and/or coordinating discharge services: Greater than 30 minutes - Quality: AMI Clinical Trial Participant: No Contraindication-PCI Procedure: Procedure not wanted - Quality: VTE Deep Vein Thrombosis/Pulmonary Embolism Present on Admission: No Exam Vital signs: Vital Signs 10/17/17 13:00 10/17/17 13:41 10/17/17 15:00 Temperature 98.2 F Pulse Rate 84 85 90 Respiratory Rate 18 Blood Pressure 125/76 Pulse Oximetry 94 L 10/17/17 16:00 10/17/17 16:46 10/17/17 18:00 Temperature Pulse Rate 84 87 90 Respiratory Rate Blood Pressure Pulse Oximetry 10/17/17 19:00 10/17/17 20:00 10/17/17 20:15 Temperature 97.7 F Pulse Rate 73 90 Respiratory Rate 18 Blood Pressure 108/65 Pulse Oximetry 92 L 96 10/17/17 21:00 10/17/17 22:00 10/17/17 23:00 Temperature Pulse Rate 82 80 78 Respiratory Rate Blood Pressure Pulse Oximetry 10/17/17 23:10 10/18/17 00:00 10/18/17 01:00 Temperature 97.7 F Pulse Rate 80 74 Respiratory Rate 18 Blood Pressure 106/65 Pulse Oximetry 96 96 10/18/17 02:00 10/18/17 03:00 10/18/17 04:00 Temperature 98 F Pulse Rate 76 76 76 Respiratory Rate 19 Blood Pressure 119/72 Pulse Oximetry 96 10/18/17 05:00 10/18/17 06:00 Temperature Pulse Rate 75 70 Respiratory Rate Blood Pressure Pulse Oximetry Intake & Output 10/17/17 10/18/17 10/18/17 18:59 06:59 18:59 Intake Total 720 / 720 420 / 420 Output Total 1974 500 / 500 Balance -1255 / -1255 -80 / -80 Intake: IV 0 / 0 NovoLIN R (IV Infusion) 100 0 / 0 UNIT In NS Inj 99 ML @ 3 UNITS/ HR 3 mls/hr IV.CONT TITRATE PRN Rx#:[id number] Oral 720 / 720 420 / 420 Output: Urine 1974 500 / 500 Other: Date of Last Bowel Movement 10/16/17 10/16/17 # Bowel Movements 0 - Constitutional no acute distress - Routine HEENT Exam Head: Present: normocephalic - Routine Neck Exam Present: supple, full ROM - Routine Respiratory Exam Present: CTA bilaterally - Routine Cardiovascular Exam Present: RRR, S1, S2 - Routine Abdominal Exam Present: soft, normoactive bowel sounds - Routine Extremities Exam Present: pulses intact, normal capillary refill - Routine Skin Exam Present: wounds Comments: sternal incision intact and well approximated / leg incision intact and well approximated - Routine Neurological Exam Present: alert, oriented X3 - Routine Psychiatric Exam Present: normal affect Results Procedures completed during hospitalization: 10/14 . Off-pump Coronary Artery Bypass Grafting x 3 with Left Internal Mammary Artery ([place]) to Left Anterior Descending (LAD), reverse saphenous vein graft to Diagonal 1 (D1), reverse saphenous vein graft to the Obtuse Marginal 2 (OM2) branch of the Circumflex artery 2. Left Leg Endoscopic Vein [place] 3. Intraoperative Vein Mapping. Labs on day of discharge: Labs from last 24 hours 10/18/17 10/18/17 10/18/17 12:07 07:47 02:50 Sodium 140 Potassium 3.9 Chloride 104 Carbon Dioxide 27.9 Anion Gap 8 BUN 12 Creatinine 0.64 Estimated GFR Greater than 89 POC Glucose 113 H 93 Random Glucose 91 Calcium 8.5 Magnesium 2.1 10/17/17 10/17/17 21:22 16:41 Sodium Potassium Chloride Carbon Dioxide Anion Gap BUN Creatinine Estimated GFR POC Glucose 136 H 97 Random Glucose Calcium Magnesium - Impressions ITS Impressions Chest X-Ray 10/18/17 06:00 CONCLUSION: Left basilar subsegmental atelectasis. Lungs are better aerated compared to previous study. Discharge Plan - Discharge Disposition Patient Disposition: /Home Health Service - Discharge Condition Condition: Good - Discharge Order Discharge Orders: Discharge Order (Routine); Ordered 10/18/17 Ordered By: Alina Roman - Physicians Team Primary Care Provider: Tonny John Attending Provider: Hollie Garcia Other Providers: [facility] - Rxs /Orders / Referrals /Forms Prescriptions: New amiodarone 200 mg Tablet 200 mg PO Q12HR Qty: 28 RF: 0 aspirin 81 mg Tablet,Chewable 81 mg PO DAILY RF: 0 atorvastatin 40 mg Tablet 40 mg PO DAILY Qty: 30 RF: 2 clopidogrel [Plavix] 75 mg Tablet 75 mg PO DAILY Qty: 30 RF: 2 docusate sodium [DOK] 100 mg Capsule 100 mg PO BID Qty: 60 RF: 0 furosemide [Lasix] 20 mg Tablet 40 mg PO DAILY Qty: 7 RF: 1 hydrocodone-acetaminophen 5-325 mg Tablet 1 tab PO Q4H PRN (Reason: Pain Scale 1 To 5) Qty: 40 RF: 0 metoprolol tartrate 25 mg Tablet 25 mg PO BID Qty: 60 RF: 2 svvqvwmf-gttf-BO-calcium-mins [Thera M Plus (ferrous fumarat)] 9 mg iron-400 mcg Tablet 1 tab PO DAILY Qty: 30 RF: 2 potassium chloride 10 mEq Capsule, Extended Release 20 meq PO DAILY Qty: 7 RF: 1 Continue aspirin [Adult Low Dose Aspirin] 81 mg Tablet,Delayed Release (Dr/Ec) 81 mg PO DAILY lisinopril 5 mg Tablet 5 mg PO DAILY zolpidem [Ambien] 10 mg Tablet 10 mg PO PRN PRN (Reason: Sleep) No Action atenolol 50 mg Tablet 50 mg PO DAILY Referrals: Tonny John MD [Primary Care Provider] - See Instructions ( Your appointment has been scheduled for [11/01/17] at [3:00 pm] If you cannot make this appointment, please call the office to reschedule ) Tonny Mckeon MD [INTERVENTIONAL CARDIOLOGY] - See Instructions ( Your appointment has been scheduled for [11/18/2017] at [9: 00AM] If you cannot make this appointment, please call the office to reschedule ) Alina Roman [ADVANCE RN PRACTITIONER] - See Instructions ( Your appointment has been scheduled for [11/05/2017] at [10: 30 AM] If you cannot make this appointment, please call the office to reschedule )
== END 2017-10-18 14:12 | disposition home health service (06) ==
LOC: HSDI 06:21 → HCVI 13:37 → HCPC 10-16 10:58
PROVIDERS: ADMIT Thoracic Surgery (Cardiothoracic Vascular Surgery); ATTEND Thoracic Surgery (Cardiothoracic Vascular Surgery)